=== PATIENT | female | born 1970 | race Caucasian/White ===

== ENCOUNTER 2019-12-04 16:20 | Inpatient (IN) | payer SELFPAY ==
--- NOTE | 2019-12-04 16:28 | XR_ITS ---
WS: [id number] PORTABLE CHEST HISTORY: cough/congestion COMPARISON: None available. Hyperinflated lungs with emphysema. No pleural effusion or pneumothorax. Cardiac size: Mildly enlarged cardiac silhouette. Mediastinum/Aorta: Mild atherosclerosis aorta. No osseous abnormality seen. XR/XR chest 1V portable [id number] IMPRESSION: Chronic emphysema and cardiomegaly. No pneumonia.
--- NOTE | 2019-12-04 16:28 | ECG_ITS ---
Measurements Intervals [place] Rate: 89 P: 19 SD: 143 QRS: 38 QRSD: 99 T: 53 QT: 365 QTc: 446 SINUS RHYTHM LOW QRS VOLTAGE IN PRECORDIAL LEADS [QRS DEFLECTION < 1.0 mV IN CHEST LEADS] No previous ECG available for comparison Electronically Signed On 12-04-2019 19:27:48 CDT by Lashawn Padilla M.D. [id number]
[2019-12-04 16:30] VITALS: BP 145/105; PULSE 87; RESP 17; TEMP 36.9; O2SAT 93; BMI 51.9
[2019-12-04 16:51] VITALS: BP 145/105; PULSE 95; RESP 16; O2SAT 92
[2019-12-04 17:11] LABS: Basophils # 0.1 10^3/uL (0.0-0.1); Basophils % 0.5 %; Eosinophils # 0.4 10^3/uL (0.0-0.8); Eosinophils % 4.4 %; Hematocrit 38.6 % (37.0-47.0); Hemoglobin 11.8 g/dL (11.5-15.3); Mean Corpuscular HGB Conc 30.6 g/dL (30.0-36.0); Mean Corpuscular Hemoglobin 24.8 pg (28.0-34.0); Mean Corpuscular Volume 81.3 fL (81-99); Mean Platelet Volume 10.5 fL (7.4-10.4); Monocytes # 0.6 10^3/uL (0.2-0.9); Monocytes % 5.6 %; Neutrophils # 6.7 10^3/uL (1.8-7.7); Neutrophils % 68.4 %; Nucleated Red Blood Cells % 0 %; Platelet Count 255 10^3/cmm (130-400); Red Blood Count 4.75 10^6/uL (4.1-5.3); Red Cell Distribution Width 13.2 % (12.1-15.1); White Blood Count 9.8 10^3/uL (4.0-10.0)
[2019-12-04 17:29] VITALS: BP 170/128; PULSE 93; RESP 20; O2SAT 92
[2019-12-04 17:39] LABS: D Dimer >= 20.00 ug/mIFEU (0-0.59)
--- NOTE | 2019-12-04 18:10 | ED_ITS ---
HPI - SOB/Dyspnea General: Chief Complaint: Shortness of Breath/Dyspnea Stated Complaint: SOB Time Seen by Provider: 12/04/19 16:35 Source: patient and EMS Mode of arrival: EMS Limitations: no limitations History of Present Illness: HPI Narrative: 49-year-old female patient complains of shortness of breath of 3 days duration. She also had some pain behind her knee and her primary care provider is concerned about a PE so he sent her here for evaluation. She has a history of COPD and asthma. MD elicited complaint: shortness of breath and chest pain Pertinent past history: COPD and asthma Onset (ago): day(s) (3) Timing: constant and progressively worsening Severity: moderate Exacerbating factors: exertion Relieving factors: nothing Known history of: COPD and asthma Associated symptoms: Reports chest pain; Deny abdominal pain, fever(s), nausea, palpitations, polydipsia, polyuria or vomiting Treatment prior to arrival: aspirin and nitroglycerin Review of Systems General: Reports: 10 or more systems reviewed and unremarkable except in HPI and below Const: Denies: fever, chills or body aches Eyes: Denies: change in vision or blurry vision ENMT: Denies: throat pain, enlarged tonsils, painful swallowing, hoarseness, mouth pain or swelling of lips/tongue Card: Reports: chest pain; Denies: palpitations, irregular heart rhythm, edema or swelling of feet/ankles Resp: Denies: shortness of breath, productive cough or non-productive cough GI: Denies: abdominal pain, nausea or vomiting : Denies: flank pain, difficulty urinating, painful urination, urinary frequency, urinary urgency or urinary hesitancy Musc: Denies: neck pain, back pain or extremity swelling Skin/Breast: Denies: rash, itching or redness Neuro: Denies: headache, numbness in extremities or weakness in extremities Endo: Denies: excessive urination, excessive thirst or tired all the time PFSH ED PFSH: Medical History (Updated 12/04/19 @ 20:18 by Jose Reinoso MD, [facility]) Anxiety Asthma COPD (chronic obstructive pulmonary disease) Degenerative joint disease Depression Diabetes DUB (dysfunctional uterine bleeding) Hypertension, benign PTSD (post-traumatic stress disorder) Sleep apnea Type 2 diabetes mellitus Surgical History (Updated 12/04/19 @ 20:05 by Mehul Freeman MD) H/O section H/O foot surgery H/O knee surgery History of appendectomy Social History (Updated 12/04/19 @ 20:05 by Mehul Freeman MD) Smoking and tobacco status: never smoked Alcohol intake: never Substance/Drug Use: never Household members: spouse Housing: House Physical Exam Const: COMMON NORMALS: no apparent distress, average body habitus, oriented x3, no limitations, healthy appearing, alert and well nourished HENMT: COMMON NORMALS: normocephalic, head/scalp atraumatic and moist oral mucous membranes HEAD & SCALP: normocephalic and atraumatic Eye: COMMON NORMALS: PERRL, EOMs intact bilaterally, conjunctivae normal and no scleral icterus CONJUNCTIVA: Yes conjunctivae normal PUPIL: Yes PERRL Neck/C-Spine: COMMON NORMALS: full ROM, supple, no meningeal signs, no JVD and no carotid bruits Chest: COMMONS NORMALS: inspection of chest normal and palpation of chest normal Resp: COMMON NORMALS: normal respiratory effort, no retractions, no use of accessory muscles, clear to auscultation bilaterally and percussion normal AUSCULTATION: clear to auscultation bilaterally PERCUSSION: percussion normal Cardio: COMMON NORMALS: no JVD, regular rate, regular rhythm, S1 normal heart sound, S2 normal heart sound, no gallops, no clicks, no murmurs, no rub and peripheral pulses 2+ throughout RATE: regular rate RHYTHM: regular rhythm HEART SOUNDS: S1 normal and S2 normal PERIPHERAL PULSES: pulses 2+ throughout GI: COMMON NORMALS: normal to inspection, nondistended, normoactive bowel sounds, soft to palpation, non-tender, no hepatosplenomegaly, no masses and no bruits PALPATION: Yes soft and Yes no hepatosplenomegaly : COMMON NORMALS: Yes no CVA tenderness BLADDER/KIDNEY EXAM: Yes no CVA tenderness Back/Pelvis: COMMON NORMALS: no CVA tenderness Extremity: COMMON NORMALS: normal to inspection, full ROM, normal capillary refill, no calf tenderness and no pedal edema Neuro: COMMON NORMALS: oriented x3 SENSORIUM/ORIENTATION: Yes alert MENINGEAL SIGNS: Yes no meningeal signs Skin: COMMON NORMALS: no rashes or lesions noted, no wounds, skin turgor normal, no jaundice, no petechiae and no mottling GENERAL SKIN EXAM: no rashes or lesions noted and turgor normal Course Consultations: Consultation #1: Dr. Freeman, hospitalist. He kindly accepted the patient to his service. Time: 19:30 Vital Signs: Vital signs: Vital Signs Temperature 98.5 F 12/04/19 16:30 Pulse Rate 93 12/04/19 17:29 Respiratory Rate 20 H 12/04/19 17:29 Blood Pressure 170/128 12/04/19 17:29 Pulse Oximetry 92 12/04/19 17:29 MDM - SOB/Dyspnea MDM Narrative: Medical decision making narrative: 49-year-old female patient who presents to the emergency department with shortness of breath. Evaluation in the emergency department yielded massive bilateral pulmonary embolism. She is giving a therapeutic dose of enoxaparin in the emergency department and is admitted for further evaluation and management. Lab Data: Labs: Lab Results 12/04/19 12/04/19 12/04/19 Range/Units 15:41 15:41 15:41 WBC 9.8 (4.0-10.0) 10^3/ uL RBC 4.75 (4.1-5.3) 10^6/u L Hgb 11.8 (11.5-15.3) g/dL Hct 38.6 (37.0-47.0) % MCV 81.3 (81-99) fL MCH 24.8 L (28.0-34.0) pg MCHC 30.6 (30.0-36.0) g/dL RDW 13.2 (12.1-15.1) % Plt Count 255 (130-400) 10^3/c mm MPV 10.5 H (7.4-10.4) fL Neut % (Auto) 68.4 % Lymph % (Auto) 20.0 % [place] % (Auto) 5.6 % Eos % (Auto) 4.4 % Baso % (Auto) 0.5 % Neut # (Auto) 6.7 (1.8-7.7) 10^3/u L Lymph # (Auto) 2.0 (0.8-4.8) 10^3/u L [place] # (Auto) 0.6 (0.2-0.9) 10^3/u L Eos # (Auto) 0.4 (0.0-0.8) 10^3/u L Baso # (Auto) 0.1 (0.0-0.1) 10^3/u L Nucleated RBC % (a uto) 0 % Nucleated RBCs # 0.0 /100WBC D-Dimer >= 20.00 H (0-0.59) ug/mIFE U Sodium 136 (136-145) mmol/L Potassium 4.1 (3.5-5.1) mmol/L Chloride 96 L (98-107) mmol/L Carbon Dioxide 27 (22-29) mmol/L Anion Gap 17.1 (5-19) BUN 11 (6-20) mg/dL Creatinine 0.7 (0.5-0.9) mg/dL GFR Calculation 88.9 L (90-130) mL/min Glucose 277 H (65-115) mg/dL Calculated Osmolal ity 288 (285-295) mOsm/k g Calcium 9.4 (8.5-10.5) mg/dL Total Bilirubin 0.4 (0.15-1.2) mg/dL AST 12 (0-32) U/L ALT 11 (0-33) U/L Alkaline Phosphata se 94 (35-105) IU/L Troponin T 120 Min [place] (0-10) ng/mL Total Protein 7.5 (6.6-8.7) g/dL Albumin 3.8 (3.5-5.2) g/dL Globulin 3.7 (1.3-4.6) g/dL 12/04/19 Range/Units 17:55 WBC (4.0-10.0) 10^3/ uL RBC (4.1-5.3) 10^6/u L Hgb (11.5-15.3) g/dL Hct (37.0-47.0) % MCV (81-99) fL MCH (28.0-34.0) pg MCHC (30.0-36.0) g/dL RDW (12.1-15.1) % Plt Count (130-400) 10^3/c mm MPV (7.4-10.4) fL Neut % (Auto) % Lymph % (Auto) % [place] % (Auto) % Eos % (Auto) % Baso % (Auto) % Neut # (Auto) (1.8-7.7) 10^3/u L Lymph # (Auto) (0.8-4.8) 10^3/u L [place] # (Auto) (0.2-0.9) 10^3/u L Eos # (Auto) (0.0-0.8) 10^3/u L Baso # (Auto) (0.0-0.1) 10^3/u L Nucleated RBC % (a uto) % Nucleated RBCs # /100WBC D-Dimer (0-0.59) ug/mIFE U Sodium (136-145) mmol/L Potassium (3.5-5.1) mmol/L Chloride (98-107) mmol/L Carbon Dioxide (22-29) mmol/L Anion Gap (5-19) BUN (6-20) mg/dL Creatinine (0.5-0.9) mg/dL GFR Calculation (90-130) mL/min Glucose (65-115) mg/dL Calculated Osmolal ity (285-295) mOsm/k g Calcium (8.5-10.5) mg/dL Total Bilirubin (0.15-1.2) mg/dL AST (0-32) U/L ALT (0-33) U/L Alkaline Phosphata se (35-105) IU/L Troponin T 120 Min [place] 18.26 H (0-10) ng/mL Total Protein (6.6-8.7) g/dL Albumin (3.5-5.2) g/dL Globulin (1.3-4.6) g/dL Imaging Data^: CTA Chest: Radiologist's impression: [address] [address] [address] Scan Report Signed with Addenda Patient: Ivon Machado #: [id number] : 1970Acct#:[id number] Age/Sex: 49 / FADM Date: 12/04/19 Loc: ERRoom/Bed: Attending Dr: Ordering Provider/Ordering MD: Jose Reinoso MD, [facility] Date of Service: 12/04/19 Procedure(s): CT angio chest PE protcl [id number] Accession Number(s): [id number] Report Number: [id number]/CT angio chest PE protcl [id number] Addendum: THIS REPORT CONTAINS FINDINGS THAT MAY BE CRITICAL TO PATIENT CARE. The findings were verbally communicated via telephone conference with JOSE REINOSO at 7:23 PM CDT on 12/04/2019. The findings were acknowledged and understood. Radiation Dose CTDIVOL = (mGy): DLP = 951.76 (mGy-cm) Addendum Dictated By: Zaire Hines Addendum Signed By: Polina Hinesigned Date/Time:12/04/191924 Addendum Cosigned By: PROCEDURE INFORMATION: Exam: CT Angiography Chest With Contrast Exam date and time: 12/04/2019 6:27 PM Age: 49 years old Clinical indication: Shortness of breath; Chest pain; Additional info: High pretest probability TECHNIQUE: Imaging protocol: Computed tomographic angiography of the chest with intravenous contrast. 3D rendering: MIP and/or 3D reconstructed images were created by the technologist. Radiation optimization: All CT scans at this facility use at least one of these dose optimization techniques: automated exposure control; mA and/or kV adjustment per patient size (includes targeted exams where dose is matched to clinical indication); or iterative reconstruction. Contrast material: OMNI 350; Contrast volume: 86 ml; Contrast route: IV; COMPARISON: CR XR chest 1V portable [id number] 12/04/2019 4:35 PM RADIATION DOSE METRICS: Total DLP: 951.76 mGy-cm FINDINGS: Pulmonary arteries: There are bilateral filling defects throughout the pulmonary artery branches in all segments of the lungs consistent with pulmonary emboli. This includes large emboli in the main right and left pulmonary artery segments. Aorta: The aorta is normal without evidence of aneurysm or dissection. Lungs: Lungs are clear. Pleural space: Unremarkable. No pneumothorax. No pleural effusion. Heart: Unremarkable. No cardiomegaly. No pericardial effusion. Lymph nodes: Unremarkable. No enlarged lymph nodes. Bones/joints: Unremarkable. No acute fracture. Soft tissues: Unremarkable. CT/CT angio chest PE protcl [id number] IMPRESSION: Extensive bilateral pulmonary embolism. Radiation Dose CTDIVOL = (mGy): DLP = 951.76 (mGy-cm) Dictated By:Zaire Hines Signed By:Polina Hinesigned Date/Time:12/04/191920 EKG Data^: EKG 1: Attestation: I personally reviewed and interpreted this EKG as follows: EKG Interpretation Date: 12/04/19 EKG interpretation time: 16:56 Prior EKG tracings: not available for review Interpretation: Normal sinus rhythm. Heart rate 89 beats per minutes. No ST changes. Normal axis. EKG 2: Attestation: I personally reviewed and interpreted this EKG as follows: EKG Interpretation Date: 12/04/19 EKG interpretation time: 18:33 Prior EKG tracings: not available for review Interpretation: Unchanged from earlier today Discharge Plan Discharge Patient Disposition: Admitted As Inpatient Admit Provider: Mehul Freeman Clinical Impression: Bilateral pulmonary embolism Condition: Stable Coding Level of Care Code ED Preschool Teacher Aide for Chg Fwd Exam Comprehensive
--- NOTE | 2019-12-04 18:19 | CTR_ITS ---
PROCEDURE INFORMATION: Exam: CT Angiography Chest With Contrast Exam date and time: 12/04/2019 6:27 PM Age: 49 years old Clinical indication: Shortness of breath; Chest pain; Additional info: High pretest probability TECHNIQUE: Imaging protocol: Computed tomographic angiography of the chest with intravenous contrast. 3D rendering: MIP and/or 3D reconstructed images were created by the technologist. Radiation optimization: All CT scans at this facility use at least one of these dose optimization techniques: automated exposure control; mA and/or kV adjustment per patient size (includes targeted exams where dose is matched to clinical indication); or iterative reconstruction. Contrast material: OMNI 350; Contrast volume: 86 ml; Contrast route: IV; COMPARISON: CR XR chest 1V portable [id number] 12/04/2019 4:35 PM RADIATION DOSE METRICS: Total DLP: 951.76 mGy-cm FINDINGS: Pulmonary arteries: There are bilateral filling defects throughout the pulmonary artery branches in all segments of the lungs consistent with pulmonary emboli. This includes large emboli in the main right and left pulmonary artery segments. Aorta: The aorta is normal without evidence of aneurysm or dissection. Lungs: Lungs are clear. Pleural space: Unremarkable. No pneumothorax. No pleural effusion. Heart: Unremarkable. No cardiomegaly. No pericardial effusion. Lymph nodes: Unremarkable. No enlarged lymph nodes. Bones/joints: Unremarkable. No acute fracture. Soft tissues: Unremarkable. CT/CT angio chest PE protcl [id number] IMPRESSION: Extensive bilateral pulmonary embolism. Radiation Dose CTDIVOL = (mGy): DLP = 951.76 (mGy-cm)
[2019-12-04 18:21] LABS: Troponin 5 2HR 18.26 ng/mL (0-10)
--- NOTE | 2019-12-04 18:28 | ECG_ITS ---
Measurements Intervals [place] Rate: 85 P: -3 CO: 155 QRS: 51 QRSD: 101 T: 64 QT: 386 QTc: 459 SINUS RHYTHM Compared to ECG 12/04/2019 18:33:46 No significant changes Electronically Signed On 12-06-2019 16:13:22 CDT by Lashawn Padilla M.D. [id number]
[2019-12-04 18:31] LABS: Alanine Aminotransferase 11 U/L (0-33); Albumin Level 3.8 g/dL (3.5-5.2); Alkaline Phosphatase 94 IU/L (35-105); Anion Gap 17.1 (5-19); Aspartate Amino Transferase 12 U/L (0-32); Blood Urea Nitrogen 11 mg/dL (6-20); Calcium 9.4 mg/dL (8.5-10.5); Carbon Dioxide 27 mmol/L (22-29); Chloride 96 mmol/L (98-107); Globulin 3.7 g/dL (1.3-4.6); Glomerular Filtration Rate 88.9 mL/min (90-130); Glucose 277 mg/dL (65-115); Osmolality Calculated 288 mOsm/kg (285-295); Potassium 4.1 mmol/L (3.5-5.1); Sodium 136 mmol/L (136-145); Total Bilirubin 0.4 mg/dL (0.15-1.2); Total Protein 7.5 g/dL (6.6-8.7)
[2019-12-04] MEDS: iohexol 350 mg/mL 100 mL Btl IV (19:03)
--- NOTE | 2019-12-04 19:42 | PM.HP ---
Providers/Chief Complaint Primary Care Provider: Sangeeta Camacho MD Chief Complaint: SOB History of Present Illness Ivon Machado is a 49 year old female who carries diagnosis of obstructive sleep apnea, COPD, uses BiPAP at night came in with chief complaint of shortness of breath and chest pain. Patient is stating that she has been leading a sedentary lifestyle, she started experiencing knee pain 2 to 3 weeks ago, up until 3 days ago she started experiencing shortness of breath at rest and on exertion, her shortness of breath was not improving with her rescue inhalers or use of BiPAP at night, she was also experiencing intermittent chest pain which she is describing as chest discomfort which resolves on its own. She is endorsing nausea but is denying fever, vomiting, dysuria, change in bowel habits, previous history of cancer, hematological diseases, family history of clotting disorder. She experienced one , she has 2 children. Diagnostics in ER revealed hypertension, she was saturating well on room air, high d-dimer, CTA positive for bilateral PEs, first troponin mildly high, I have ordered BNP, echo and lower extremity Doppler Currently she is hemodynamically stable Review of Systems Const: Reports: body aches and fatigue; Denies: fever or chills Eyes: Denies: change in vision ENMT: Denies: throat pain or uvular edema Card: Reports: chest pain, swelling of feet/ankles and shortness of breath on exertion; Denies: palpitations, irregular heart rhythm or shortness of breath when lying down Resp: Reports: shortness of breath GI: Denies: abdominal pain or nausea : Denies: flank pain Musc: Denies: neck pain Skin/Breast: Denies: rash Neuro: Denies: headache Psych: Denies: anxiety Endo: Denies: excessive urination Reggie/Lymph: Denies: easy bruising All/Imm: Denies: hives Medications/Allergies Home Medications Medication Instructions Recorded Confirmed Last Taken Type hydrochlorothiazide 25 mg tablet 25 mg PO QAM 08/26/19 12/04/19 Unknown History glipizide 10 mg PO DAILY 12/04/19 12/04/19 12/03/19 History Allergies Allergy/AdvReac Type Severity Reaction Status Date / Time No Known Allergies Allergy Verified 12/04/19 15:02 PFSH Acute PFSH: Medical History (Updated 12/04/19 @ 20:05 by Mehul Freeman MD) Anxiety Asthma COPD (chronic obstructive pulmonary disease) Degenerative joint disease Depression Diabetes DUB (dysfunctional uterine bleeding) Hypertension, benign PTSD (post-traumatic stress disorder) Sleep apnea Type 2 diabetes mellitus Surgical History (Updated 12/04/19 @ 20:05 by Mehul Freeman MD) H/O section H/O foot surgery H/O knee surgery History of appendectomy Social History (Updated 12/04/19 @ 20:05 by Mehul Freeman MD) Smoking and tobacco status: never smoked Alcohol intake: never Substance/Drug Use: never Household members: spouse Housing: House Vitals/I&O/Wt Last Vital Signs Temp 98.5 F 12/04/19 16:30 Pulse 93 12/04/19 17:29 Resp 20 H 12/04/19 17:29 BP 170/128 12/04/19 17:29 Pulse Ox 92 12/04/19 17:29 Weight last 48 hrs Weight 132.903 kg Physical Exam Narrative: EXAM NARRATIVE: This is a morbidly obese female He was sitting comfortably in her bed without any active respiratory distress, saturating well on room air, she is hypertensive at this point 170/120 S1, S2 no signs of heart failure Hard to assess her JVD Clinically no signs of heart failure Adventitious sounds not appreciated, lungs are clear to auscultation Abdomen soft, distended, visceral obesity, bowel sound present Neurologically nonfocal exam EOMI, PERRLA Lower extremity no signs of ischemia gangrene or ulcer, asymmetrical calf muscles Appropriate mood and affect Data : 12/04/19 15:41 12/04/19 15:41 A&P Assessment and plan (1) Bilateral pulmonary embolism: Status: Acute (2) Knee pain: Status: Acute (3) Morbid obesity: Status: Acute (4) Diabetes: Status: Acute Qualifiers: Diabetes mellitus type: type 2 Diabetes mellitus skilled nursing insulin use: without skilled nursing use Diabetes mellitus complication status: without complication Qualified Code(s): E11.9 - Type 2 diabetes mellitus without complications Additional A&P Information Acute bilateral symptomatic PE (provoked) Hemodynamically she is stable No evidence of right heart strain from EKG however there is mild increase in troponin, will get BNP now and echo in the morning Patient is denying any history of cancer, most likely this is a provoked event due to sedentary lifestyle, she experienced knee pain, calf muscles are asymmetrical, will get venous Dopplers bilateral, Considering her BMI I would use Lovenox for now Hypertension: I would use low-dose lisinopril at this point considering bilateral PEs I would be reluctant to reduce her perfusion pressure to avoid hemodynamic instability Obstructive sleep apnea Patient is stating that she is using BiPAP at night She is a non-smoker she carries diagnosis of asthma and COPD however not sure if she had pulmonary function test done in the past Type 2 diabetes: Moderate sliding scale, consistent carbohydrate diet DVT prophylaxis: Start Lovenox full dose Full code Attestations Medical Necessity Statement*: Anticipating her stay to be less than 48 hours, currently needs treatment for bilateral PEs, no hemodynamic instability Time Spent in Patient Care: 40 Coding Level of Care Code Acute Biological Chemist for Ej Raygoza Diagnoses Bilateral pulmonary embolism I26.99 Knee pain M25.569 Morbid obesity E66.01 Diabetes E11.9 Diabetes mellitus type: type 2 Diabetes mellitus supervising law enforcement analyst insulin use: without supervising law enforcement analyst use Diabetes mellitus complication status: without complication
[2019-12-04] MEDS: enoxaparin 100 mg/mL Syringe SUBCUT (20:06)
[2019-12-04] MEDS: enoxaparin 30 mg/0.3 mL Syringe SUBCUT (20:06)
[2019-12-04 20:19] VITALS: BP 122/81; PULSE 87; RESP 18; TEMP 37; O2SAT 96
[2019-12-04 20:30] LABS: Troponin(5th) Baseline 21 ng/mL (0-10)
[2019-12-04 21:00] VITALS: BP 157/85; PULSE 92; RESP 18; TEMP 36.8; O2SAT 90
[2019-12-04 21:15] LABS: NT Pro B Type Natriuretic Pept 31 pg/mL (0-125)
[2019-12-04] MEDS: hyDRALAzine 20 mg/mL INJ 1 mL 5 MG IVP (21:23)
[2019-12-04 21:41] LABS: Glucose Point of Care 197 mg/dL (70-110)
[2019-12-04 22:11] VITALS: PULSE 86; RESP 20; O2SAT 95
--- NOTE | 2019-12-04 22:28 | ECG_ITS ---
Measurements Intervals [place] Rate: 87 P: 73 [place]: 156 QRS: 36 QRSD: 100 T: 54 QT: 368 QTc: 443 SINUS RHYTHM No previous ECG available for comparison Electronically Signed On 12-04-2019 19:42:44 CDT by Lashawn Padilla M.D. [id number]
[2019-12-04 22:54] LABS: Troponin 5 6HR 18.24 ng/mL (0-10)
[2019-12-04 22:57] LABS: Troponin 5 6HR Delta -2.76 ng/L (0-12)
[2019-12-04 23:22] LABS: Troponin 5 2HR Delta -2.74 ABS# (0-10)
[2019-12-04] MEDS: TRAMadol 50 mg Tablet PO (23:48)
[2019-12-05] VITALS (12 sets, daily range): BP systolic 108–131; BP diastolic 66–84; PULSE 77–86; RESP 18–23; TEMP 36.4–36.9; O2SAT 91–98
[2019-12-05 05:19] LABS: Basophils # 0.1 10^3/uL (0.0-0.1); Basophils % 0.5 %; Eosinophils # 0.6 10^3/uL (0.0-0.8); Eosinophils % 5.5 %; Hematocrit 35.9 % (37.0-47.0); Hemoglobin 10.8 g/dL (11.5-15.3); Lymphocytes # 2.8 10^3/uL (0.8-4.8); Lymphocytes % 27.7 %; Mean Corpuscular HGB Conc 30.1 g/dL (30.0-36.0); Mean Corpuscular Hemoglobin 24.5 pg (28.0-34.0); Mean Corpuscular Volume 81.4 fL (81-99); Mean Platelet Volume 10.1 fL (7.4-10.4); Monocytes # 0.6 10^3/uL (0.2-0.9); Neutrophils % 59.1 %; Nucleated Red Blood Cells % 0 %; Platelet Count 230 10^3/cmm (130-400); Red Blood Count 4.41 10^6/uL (4.1-5.3); Red Cell Distribution Width 13.3 % (12.1-15.1); White Blood Count 10.1 10^3/uL (4.0-10.0)
[2019-12-05 05:37] LABS: Anion Gap 15.2 (5-19); Blood Urea Nitrogen 10 mg/dL (6-20); Calcium 8.9 mg/dL (8.5-10.5); Carbon Dioxide 26 mmol/L (22-29); Chloride 99 mmol/L (98-107); Glomerular Filtration Rate 88.9 mL/min (90-130); Glucose 171 mg/dL (65-115); Osmolality Calculated 282 mOsm/kg (285-295); Potassium 4.2 mmol/L (3.5-5.1); Sodium 136 mmol/L (136-145)
[2019-12-05 06:28] LABS: Glucose Point of Care 169 mg/dL (70-110)
[2019-12-05] MEDS: lisinopril 10 mg Tablet PO (08:01)
[2019-12-05] MEDS: enoxaparin 100 mg/mL Syringe SUBCUT ×2 (08:02→19:39)
[2019-12-05] MEDS: enoxaparin 30 mg/0.3 mL Syringe SUBCUT ×2 (08:03→19:40)
[2019-12-05 11:15] LABS: Glucose Point of Care 262 mg/dL (70-110)
--- NOTE | 2019-12-05 12:35 | P.PN_ITS ---
Subjective Subjective: Interval history: Ivon reports she still a little short of breath. She is not having chest pain. Overall feels better. History and physical was reviewed. Medications: Reviewed: Yes Vitals/I&O/Wt Last Vital Signs Temp 97.6 F 12/05/19 10:50 Pulse 79 12/05/19 10:50 Resp 20 H 12/05/19 10:50 BP 125/78 12/05/19 10:50 Pulse Ox 97 12/05/19 10:50 12/04/19 12/05/19 12/05/19 22:59 06:59 14:59 Intake Total 480 / 480 120 / 600 600 / 600 Output Total 200 / 200 300 / 300 Balance 480 / 480 -80 / 400 300 / 300 Weight last 48 hrs Weight 132.903 kg Physical Exam Narrative: EXAM NARRATIVE: General exam no apparent distress Cardiovascular regular rate and rhythm, heart sounds distant Lungs clear but with diminished breath sounds bilaterally Abdomen is soft with positive bowel sounds, obese Extremities with 1+ edema right greater than left Data : 12/05/19 05:06 12/05/19 05:06 A&P Assessment and plan (1) Bilateral pulmonary embolism: Initiated on full dose Lovenox Significantly sedentary prior to admission. No family history of DVT. No history of malignancy. May need further work-up as outpatient. Secondary to extensive burden will continue Lovenox for now and transition to [facility] likely Monday with discharge if no events Await echocardiogram to check for right heart strain. No evidence of this on EKG. Status: Acute (2) DVT, bilateral lower limbs: Continue full dose Lovenox Status: Acute (3) Knee pain: Status: Acute (4) Morbid obesity: Status: Acute (5) Diabetes: Sliding scale insulin Status: Acute Qualifiers: Diabetes mellitus type: type 2 Diabetes mellitus terminal system operator insulin use: without snf use Diabetes mellitus complication status: without complication Qualified Code(s): E11.9 - Type 2 diabetes mellitus without complications Additional A&P Information Hypertension. Continue lisinopril currently. Monitor closely for any hypotension secondary to bilateral PE Obstructive sleep apnea, continue BiPAP History of asthma, add albuterol as needed Full code DVT prophylaxis with Lovenox Changed to regular admission secondary to large burden DVT, pulmonary embolism, requiring further close monitoring Attestations Medical Necessity Statement*: Needs continued hospitalization for close monitoring secondary to large burden pulmonary embolism left and right main pulmonary arteries Coding Level of Care Code Acute Furnace Mechanic for Chg Fwd Diagnoses Bilateral pulmonary embolism I26.99 DVT, bilateral lower limbs I82.403 Knee pain M25.569 Morbid obesity E66.01 Diabetes E11.9 Diabetes mellitus type: type 2 Diabetes mellitus terminal system operator insulin use: without terminal system operator use Diabetes mellitus complication status: without complication
[2019-12-05 16:15] LABS: Glucose Point of Care 240 mg/dL (70-110)
--- NOTE | 2019-12-05 19:23 | USCV_ITS ---
Ivon Machado Age: 49 Gender: F : 1970 Exam Date: 12/05/2019 07:09 Ordering Phys: Jose Mares MD [facility] [place]ologist: Roxanna Pittman [place] [facility] [place]: Massive PE BP: / HR: 80 Rhythm: Sinus Technical Quality: TDS MEASUREMENTS (Male / Female) Normal Values 2D ECHO LV Chamber Size 3.1 cm RV Chamber Size 2.5 cm LVOT Diameter 2.1 cm LA Diameter 3.2 cm LA Width 2.1 cm LA Height 5.1 cm RA Width 3.8 cm RA Height 4.2 cm Aorta at Sinotubular Diameter 2.8 cm M-MODE RV Diastolic Diameter MM 1.4 cm Aortic Annulus Diameter 3.1 cm LA Ao Ratio MM 1.0 MV E Point Septal Separation 0.6 cm DOPPLER AV Peak Velocity 134.0 cm/s LVOT Peak Velocity 111.0 cm/s AV Area Cont Eq vti 2.9 cm squared AV Area Cont Eq pk 2.8 cm squared MV Area PHT 5.5 cm squared Mitral E to A Ratio 2.1 MV E' Velocity 14.0 cm/s Mitral E to MV E' Ratio 6.3 Mitral E to LV E' Lateral Ratio 6.3 Mitral E to LV E' Septal Ratio 6.3 TR Peak Velocity 4.0 cm/s TR Peak Gradient 0.0 mmHg TR Mean Velocity 108.7 cm/s TR Mean Gradient 6.2 mmHg TR Velocity Time Integral 42.6 cm TV Peak E Velocity 35.0 cm/s Right Atrial Pressure 15.0 mmHg Pulmonary Artery Systolic Pressu 15.0 mmHg PV Peak Velocity 49.0 cm/s RV Acceleration Time 0.2 s RV Ejection Time 0.6 s RV AcT/ET 0.4 FINDINGS Left Ventricle Normal left ventricular systolic function. Left ventricular ejection fraction is estimated at 60 %. Although no diagnostic regional wall motion abnormality could be identified, this possibility cannot be completely excluded based on the study. Flattened septum in systole consistent with right ventricle pressure overload. Right Ventricle Right ventricle not well visualized. Probably upper normal right ventricle size and normal systolic function. Right ventricular systolic pressure 35 mmHg. Right Atrium Normal right atrial size. Right atrial pressure estimated at 15 mmHg. Left Atrium Normal left atrial size. Mitral Valve Structurally normal mitral valve. No significant mitral valve regurgitation. Aortic Valve Aortic valve not well visualized. No aortic valve stenosis. No aortic valve regurgitation. Tricuspid Valve Tricuspid valve not well visualized. Trace tricuspid valve regurgitation. Pulmonic Valve Pulmonic valve not well visualized. Pericardium No pericardial effusion. Aorta Aorta not well visualized. CONCLUSIONS 1. This is a technically very difficult study. 2. Normal left ventricular systolic function. Left ventricular ejection fraction is estimated at 60 %. Although no diagnostic regional wall motion abnormality could be identified, this possibility cannot be completely excluded based on the study. Flattened septum in systole consistent with right ventricle pressure overload. 3. Probably upper normal right ventricle size and normal systolic function. 4. Right atrial pressure estimated at 15 mmHg. 5. No significant valvular abnormality. 6. No prior similar studies to compare. Lashawn Padilla MD (Electronically Signed) Final Date: 05 December 2019 13:36 S
[2019-12-05] MEDS: tizanidine 4 mg Tablet 2 MG PO (19:39)
--- NOTE | 2019-12-05 20:42 | USCV_ITS ---
Ivon Machado Age: 49 Gender: F : 1970 Exam Date: 12/05/2019 06:45 Ordering Phys: Mehul Freeman MD Technologist: Roxanna Pittman [place]am Location: [facility] [place]: PE HISTORY: Pt admitted with PE PROCEDURES: The venous duplex Doppler examination of both lower extremities was performed in the standard fashion. The following venous structures were evaluated: common femoral vein, profunda vein, proximal portion of the greater saphenous vein, superficial femoral vein, and the popliteal vein. In addition, the posterior tibial and peroneal trunk were evaluated. Serial compression, augmentation maneuvers, and spectral Doppler flow evaluation were performed. FINDINGS: RT leg DVT from Rt CFV through the peroneal trunk. Occlusive acute DVT. Lt Leg DVT from Lt FV through the peroneal trunk. Occlusive acute DVT. CONCLUSIONS Extensive bilateral DVT. Dr. Arline Alexandra DO (Electronically Signed) Final Date: 05 December 2019 10:02 S
[2019-12-06] VITALS (12 sets, daily range): BP systolic 102–139; BP diastolic 59–73; PULSE 69–82; RESP 17–24; TEMP 36.6–38.2; O2SAT 90–96
[2019-12-06] MEDS: TRAMadol 50 mg Tablet PO (03:12)
[2019-12-06 05:17] LABS: Basophils # 0.1 10^3/uL (0.0-0.1); Basophils % 0.6 %; Eosinophils # 0.6 10^3/uL (0.0-0.8); Eosinophils % 5.6 %; Hematocrit 34.6 % (37.0-47.0); Hemoglobin 10.4 g/dL (11.5-15.3); Lymphocytes # 2.8 10^3/uL (0.8-4.8); Lymphocytes % 28.8 %; Mean Corpuscular HGB Conc 30.1 g/dL (30.0-36.0); Mean Corpuscular Hemoglobin 24.9 pg (28.0-34.0); Mean Platelet Volume 10.7 fL (7.4-10.4); Monocytes # 0.7 10^3/uL (0.2-0.9); Neutrophils # 5.5 10^3/uL (1.8-7.7); Neutrophils % 56.3 %; Nucleated Red Blood Cells % 0 %; Platelet Count 247 10^3/cmm (130-400); Red Blood Count 4.17 10^6/uL (4.1-5.3); Red Cell Distribution Width 13.2 % (12.1-15.1); White Blood Count 9.8 10^3/uL (4.0-10.0)
[2019-12-06 05:27] LABS: Alanine Aminotransferase 10 U/L (0-33); Albumin Level 3.3 g/dL (3.5-5.2); Alkaline Phosphatase 78 IU/L (35-105); Anion Gap 15.1 (5-19); Aspartate Amino Transferase 12 U/L (0-32); Blood Urea Nitrogen 12 mg/dL (6-20); Calcium 8.7 mg/dL (8.5-10.5); Carbon Dioxide 26 mmol/L (22-29); Chloride 99 mmol/L (98-107); Globulin 3.3 g/dL (1.3-4.6); Glomerular Filtration Rate 88.9 mL/min (90-130); Glucose 192 mg/dL (65-115); Osmolality Calculated 283 mOsm/kg (285-295); Potassium 4.1 mmol/L (3.5-5.1); Sodium 136 mmol/L (136-145); Total Bilirubin 0.3 mg/dL (0.15-1.2); Total Protein 6.6 g/dL (6.6-8.7)
[2019-12-06 07:42] LABS: Glucose Point of Care 150 mg/dL (70-110)
[2019-12-06] MEDS: enoxaparin 30 mg/0.3 mL Syringe SUBCUT ×2 (09:15→21:17)
[2019-12-06] MEDS: enoxaparin 100 mg/mL Syringe SUBCUT ×2 (09:15→21:16)
[2019-12-06] MEDS: lisinopril 10 mg Tablet PO (09:33)
--- NOTE | 2019-12-06 09:47 | PC.CHAP ---
Pastoral Care Encounter/Spiritual Assessment Type of Contact [] Declined acquisitions logistics analyst visit [] Patient/Family/Request visit [] Outpatient visit [] Follow-up visit [] Physician referral [] Code/Alert [x] Routine visit [] Staff referral [] Actively dying [x] Patient sleeping [] Family support [] [] Out of room [] Palliative care [] [] Receiving care in room [] Pre-surgical visit [] Trauma [] Long length of stay [] ICU visit [] Other: Relational/Emotional Strength [] Patient feels connected with others/family/visitors/staff [] Distress [] Loneliness/isolation [] Abandonment Spirituality of Patient [] Person of Natalya [] Attends Taoism of their Natalya [] Believes in Prayer [] Reads Bible or Uatsdin materials [] There are Spiritual issues to be addressed Show Host/Hostess Interventions [x] Prayer [] Active listening [] Non-anxious presence [] Spiritual/emotional support [] Crisis/trauma care [] Spiritual counseling [] Bereavement support [] Provided bereavement packet [] Provided Bible/devotional materials [] Provided toy/stuffed animal, coloring book to patient or family member [] Provided Communion [] Anointing/[place] [] Salvation [x] Completed spiritual assessment [] Other: Impact on Illness or Injury [] Angry [] Fearful [] Anxious [] Often cries [] Exhaustion [] Unable to work [] Unable to attend mandaeism [] Unable to walk/stand [] Unable to read [] Unable to drive [] Unable to eat/drink [] Unable to sleep [] Unable to be with family [] Patient intubated [] Other: Summary Patient on respirator Time spent with patient 5 min
[2019-12-06 11:48] LABS: Glucose Point of Care 233 mg/dL (70-110)
[2019-12-06] MEDS: tizanidine 4 mg Tablet 2 MG PO (17:21)
--- NOTE | 2019-12-06 17:23 | P.PN_ITS ---
Subjective Subjective: Interval history: Ivon reports she is doing okay. No shortness of breath. No chest pain. Medications: Reviewed: Yes Vitals/I&O/Wt Last Vital Signs Temp 100.7 F H 12/06/19 15:58 Pulse 69 12/06/19 15:58 Resp 20 H 12/06/19 15:58 BP 112/73 12/06/19 15:58 Pulse Ox 96 12/06/19 15:58 12/06/19 12/06/19 12/06/19 06:59 14:59 22:59 Intake Total 200 / 200 222 / 422 Output Total 600 / 600 Balance 200 / 200 -378 / -178 Physical Exam Narrative: EXAM NARRATIVE: General exam no apparent distress Cardiovascular regular rate and rhythm Lungs clear Abdomen is soft with positive bowel sounds, obese Extremities with 1+ edema right greater than left Data : 12/06/19 03:30 12/06/19 03:30 A&P Assessment and plan (1) Bilateral pulmonary embolism: Continue full dose Lovenox If remains stable through tomorrow changed to Eliquis and potential discharge Echocardiogram did demonstrate some evidence of right ventricle pressure overload, but study was difficult. Status: Acute (2) DVT, bilateral lower limbs: Continue full dose Lovenox Status: Acute (3) Knee pain: Status: Acute (4) Morbid obesity: Status: Acute (5) Diabetes: Sliding scale insulin Status: Acute Qualifiers: Diabetes mellitus type: type 2 Diabetes mellitus intermediate manager insulin use: without care home use Diabetes mellitus complication status: without comp lication Qualified Code(s): E11.9 - Type 2 diabetes mellitus without compl ications Additional A&P Information Hypertension. Continue lisinopril Obstructive sleep apnea, continue BiPAP History of asthma, add albuterol as needed Full code DVT prophylaxis with Lovenox Did note elevation of temperature of 100.7. Patient has been without complaints and this may be secondary to atelectasis, versus pulmonary embolism. No evidence of pneumonia on CTA and chest x-ray. No other symptoms to suggest other infection currently. Attestations Medical Necessity Statement*: Needs continued hospitalization for close monitoring secondary to large burden DVT and pulmonary emboli with some evidence of right heart strain on echocardiogram Coding Level of Care Code Acute Cabin Worker for [facility] Fwd Diagnoses Bilateral pulmonary embolism I26.99 DVT, bilateral lower limbs I82.403 Knee pain M25.569 Morbid obesity E66.01 Diabetes E11.9 Diabetes mellitus type: type 2 Diabetes mellitus intermediate manager insulin use: without intermediate manager use Diabetes mellitus complication status: without complication
[2019-12-06 17:34] LABS: Glucose Point of Care 247 mg/dL (70-110)
[2019-12-06 20:16] LABS: Glucose Point of Care 217 mg/dL (70-110)
[2019-12-06 20:33] LABS: Glucose Point of Care 271 mg/dL (70-110)
[2019-12-06 23:49] LABS: Bacteria Urine TRACE; Bilirubin Urine 1+ (NEGATIVE); Blood Urine Neg (Negative); Glucose Urine UA 2+ (Normal); Ketones Urine Negative (Negative); Leukocyte Esterase Urine Negative (Negative); Mucus Urine 1+; Nitrate Urine Negative (Negative); Protein Urine Neg (Negative); RBC Urine 0-4 /hpf (0-2); Squamous Epithelial Cell Urine 0-4 (0-5); Urine Appearance Cloudy (CLEAR); Urine Color Yellow (Yellow); Urobilinogen Urine Norm (Negative); WBC Urine 0-4 /hpf (0-5); pH Urine 5 (5-7)
[2019-12-07] VITALS (9 sets, daily range): BP systolic 104–122; BP diastolic 64–76; PULSE 80–92; RESP 20–24; TEMP 36.3–37.2; O2SAT 86–97
[2019-12-07 06:43] LABS: Glucose Point of Care 123 mg/dL (70-110)
[2019-12-07] MEDS: lisinopril 10 mg Tablet PO (08:27)
[2019-12-07] MEDS: enoxaparin 100 mg/mL Syringe SUBCUT (08:27)
[2019-12-07] MEDS: enoxaparin 30 mg/0.3 mL Syringe SUBCUT (08:27)
--- NOTE | 2019-12-07 10:15 | P.DS_ITS ---
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 This is been going on for several days and she had had knee pain 2 to 3 weeks prior. Laboratory demonstrated a slight elevation in troponin with no significant delta. Venous duplex of her lower extremities which were slightly swollen demonstrated bilateral DVTs. CTA demonstrated bilateral pulmonary emboli, main pulmonary arteries. She was placed on Lovenox, full dose anticoagulation and monitored closely from admission, on December 03 through December 05. During that time. She had no decompensation. She continued to use her BiPAP, while sleeping. She required minimal oxygen when off. Chest discomfort went away. Legs felt better. On December 06 she was transitioned to full dose Eliquis. At that time the patient requested to go home, which was reasonable considering her course up to date. Echocardiogram was performed while she was in the hospital demonstrated normal EF, overall poor study, some flattening of the septum during systole that may be considered consistent with right ventricular pressure overload, but over all normal right ventricular systolic size and pressure. Right atrial pressure was 15. She was encouraged to follow-up with her primary care provider in 3 to 5 days, returning immediately for any worsening. Physical Exam Narrative: EXAM NARRATIVE: General exam no apparent distress Cardiovascular regular in rhythm without murmur Lungs clear Abdomen is soft with positive bowel sounds, obese Extremities 1+ edema bilaterally. Discharge Data Data Completed and Pending: Completed Studies During Hospitalization Category Date Time Status CT angio chest PE protcl [id number] Stat Cat Scan 12/04/19 18:19 Completed XR chest 1V mary jo ble [id number] Urgent Exams 12/04/19 16:28 Completed CV echo complete* [id number] Urgent Ultrasound 12/05/19 19:23 [place] [id number] Routin e Ultrasound 12/05/19 20:42 Completed Labs from last 24 hours 12/07/19 12/06/19 12/06/19 06:39 23:00 20:25 POC Glucose 123 271 Urine Color Yellow Urine Appearance Cloudy Urine pH 5 Ur Specific Gravit y 1.020 Urine Protein Neg Urine Glucose (UA) 2+ Urine Ketones Negative Urine Blood Neg Urine Nitrate Negative Urine Bilirubin 1+ H Urine Urobilinogen Norm Ur Leukocyte Nury ase Negative Urine RBC 0-4 H Urine WBC 0-4 H Ur Squamous Epith Cells 0-4 H Urine Bacteria Trace Urine Mucus 1+ 12/06/19 12/06/19 12/05/19 17:16 11:15 20:21 POC Glucose 247 233 217 Urine Color Urine Appearance Urine pH Ur Specific Gravit y Urine Protein Urine Glucose (UA) Urine Ketones Urine Blood Urine Nitrate Urine Bilirubin Urine Urobilinogen Ur Leukocyte Nury ase Urine RBC Urine WBC Ur Squamous Epith Cells Urine Bacteria Urine Mucus Vitals: Last Vital Signs Temp 97.4 F L 12/07/19 07:22 Pulse 80 12/07/19 08:39 Resp 20 H 12/07/19 07:22 BP 122/64 12/07/19 07:22 Pulse Ox 95 12/07/19 08:39 Discharge Plan Discharge Patient Disposition: Home, Self-Care Condition: Stable Prescriptions: New lisinopril 10 mg Tablet 10 mg PO DAILY Qty: 30 RF: 0 Eliquis DVT-PE Treat 30D Start 5 mg (74 tabs) tablets,dose pack See Rx Instructions .ROUTE .COMPLEX Qty: 74 RF: 0 Continued glipizide 10 mg Tablet Extended Release 24hr 10 mg PO DAILY RF: 0 Discontinued hydrochlorothiazide 25 mg tablet 25 mg PO QAM RF: 0 Discharge Orders: Discharge Order (Routine); Ordered 12/07/19 Ordered By: Pete Andres Other Ambulatory Orders: DME: Oxygen (Order) Location: None Selected Ordered By: Pete Andres Referrals: Sangeeta Camacho MD [Primary Care Provider] - 4-7 days Discharge Diet: Cardiac Discharge Activity: Increase activity as tolerated Activity Restrictions/Additional Instructions: Take all medicine as prescribed. Return for any concerns. Keep follow-up with primary care provider. Do not miss any doses of your Eliquis. 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
[2019-12-07 10:55] LABS: Glucose Point of Care 199 mg/dL (70-110)
== END 2019-12-07 15:38 | disposition home or self-care (01) | DRG 176 ==
LOC: ER 16:50 → MEDSURG 20:18
PROVIDERS: Physician Assistant; Admitting Provider Internal Medicine; Emergency Provider Family Medicine; Family Provider Emergency Medicine; PCP Family Medicine; Visit Provider Internal Medicine
DX: I26.99 Other pulmonary embolism without acute cor pulmonale (principal); I82.413 Acute embolism and thrombosis of femoral vein, bilateral; I82.453 Acute embolism and thrombosis of peroneal vein, bilateral; Z68.43 Body mass index [BMI] 50.0-59.9, adult; G47.33 Obstructive sleep apnea (adult) (pediatric); J44.9 Chronic obstructive pulmonary disease, unspecified; I10 Essential (primary) hypertension; F41.9 Anxiety disorder, unspecified; J45.909 Unspecified asthma, uncomplicated; M19.90 Unspecified osteoarthritis, unspecified site; F32.9 Major depressive disorder, single episode, unspecified; E11.9 Type 2 diabetes mellitus without complications; F43.10 Post-traumatic stress disorder, unspecified; E66.01 Morbid (severe) obesity due to excess calories; M25.569 Pain in unspecified knee
CPT/HCPCS: 12345; 36415; 36416; 71045; 71275; 80048; 80053; 81001; 82962; 83880; 84484; 85025; 85378; 93005; 93306; 93970; 94660; 96372; 96375; 99283; G0378; J0360; J1650; J1815; Q9967

== ENCOUNTER → 2020-01-14 16:26 | Outpatient (BNVA) | payer SELFPAY | PROVIDERS: Family Provider Emergency Medicine; PCP Family Medicine; Visit Provider Family Medicine | DX: I10 Essential (primary) hypertension (principal); F41.9 Anxiety disorder, unspecified; Z12.4 Encounter for screening for malignant neoplasm of cervix | CPT/HCPCS: 88175 ==

== ENCOUNTER → 2020-05-20 17:41 | Outpatient (BNVA) | payer SELFPAY | PROVIDERS: Family Provider Emergency Medicine; PCP Family Medicine; Visit Provider Family Medicine | DX: I10 Essential (primary) hypertension (principal); F41.9 Anxiety disorder, unspecified; E11.69 Type 2 diabetes mellitus with other specified complication; Z23 Encounter for immunization; F33.1 Major depressive disorder, recurrent, moderate; I26.99 Other pulmonary embolism without acute cor pulmonale | CPT/HCPCS: 80053; 80061; 83036 ==

== ENCOUNTER 2021-07-02 16:28 | Emergency (ER) | payer MEDICAID, SELFPAY ==
[2021-07-02 16:35] VITALS: BP 168/103; PULSE 89; RESP 18; TEMP 36.9; O2SAT 95; BMI 48.6
--- NOTE | 2021-07-02 17:25 | USR_ITS ---
PROCEDURE INFORMATION: Exam: US Duplex Right Lower Extremity Veins, Limited Exam date and time: 07/02/2021 5:25 PM Age: 50 years old Clinical indication: Pain; Leg, lower; Right; Patient HX: Last year had admission for pe. Both lower legs had dvt. She has recently stopped thinners; Additional info: HX of emboli, off blood thinners x 1 month TECHNIQUE: Imaging protocol: Real-time Duplex ultrasound of the Right Lower Extremity with 2-D rubalcava scale, color Doppler flow and spectral waveform analysis with image documentation. Limited exam was focused on the right lower extremity veins. COMPARISON: No relevant prior studies available. FINDINGS: Right deep veins: Venous Doppler ultrasound of the right lower extremity:. Normal compressibility of the deep veins of the right lower extremity. Normal Doppler wave form with evidence of augmentation within these deep veins. Right superficial veins: Unremarkable. Saphenofemoral junction is patent without thrombus. Soft tissues: Unremarkable. Other findings: Thrombus within the lesser saphenous [place]. US/[place] [id number] IMPRESSION: 1. No evidence of deep venous thrombosis of the right lower extremity. No thrombus within the common femoral vein, superficial femoral vein, popliteal vein, peroneal vein or posterior tibial vein. 2. Thrombus within the lesser saphenous vein. Radiation Dose CTDIVOL = (mGy): DLP = (mGy-cm)
--- NOTE | 2021-07-02 17:34 | W.ED.EXTPRO ---
HPI - Extremity Problem General: Chief complaint: Extremity Problem,Nontraumatic Stated complaint: RIGHT LEG PAINS AND SWELLING Time Seen by Provider: 07/02/21 17:18 History of Present Illness: HPI Narrative: Patient states she has had right lower extremity pain for 1 to 2 weeks. Just got off her blood thinner which was Eliquis x1 month ago due to cost of medicine. Patient history of pulmonary emboli earlier to to Covid. She feels pain in her right lower extremity from the knee down. Says it has appeared to swell. MD Complaint: extremity pain and extremity swelling Onset (ago): week(s) Pain Consistency: constant Location: right and lower extremity Severity scale (1-10): 3 Quality: aching Radiation: distal Relieving factors: immobilization Exacerbating factors: range of motion Associated symptoms: Reports no associated symptoms; Deny chest pain, fever(s) or rash Context: history of DVT (History of pulmonary emboli.) Review of Systems Const: Denies: fever(s), chills or body aches Eyes: Denies: change in vision or blurry vision ENMT: Denies: throat pain or nasal congestion Card: Denies: chest pain or dyspnea on exertion Resp: Denies: dyspnea, productive cough or non-productive cough GI: Denies: abdominal pain, nausea or vomiting Musc: Reports: extremity pain (Right lower) Skin/Breast: Denies: rash Neuro: Denies: headache(s) Psych: Denies: anxiety or depression Reggie/Lymph: Denies: easy bruising PFSH ED PFSH: Medical History (Updated 07/02/21 @ 19:30 by NOEMI Paulson) Anxiety Asthma COPD (chronic obstructive pulmonary disease) Degenerative joint disease Depression Diabetes Diabetic neuropathy DUB (dysfunctional uterine bleeding) Hypertension, benign PTSD (post-traumatic stress disorder) Sleep apnea Type 2 diabetes mellitus Surgical History H/O section H/O foot surgery H/O knee surgery History of appendectomy Family History Other Cancer Diabetes Hypertension Social History Smoking and tobacco status: never smoked Alcohol intake: never Household members: spouse Housing: House Current gender identity: Female Female Reproductive History: Spontaneous abortions: No Physical Exam Const: COMMON NORMALS: no acute distress, average body habitus and patient oriented x3 HENMT: COMMON NORMALS: normocephalic HEAD & SCALP: normal to inspection and normocephalic FACE & SINUS: normal facial exam Eye: COMMON NORMALS: conjunctivae normal GENERAL EYE: appearance normal, both eyes and all related structures CONJUNCTIVA: Yes conjunctivae normal Neck/C-Spine: COMMON NORMALS: no JVD Chest: COMMONS NORMALS: normal inspection of the chest Resp: COMMON NORMALS: normal respiratory effort and clear to auscultation bilaterally AUSCULTATION: clear to auscultation bilaterally Cardio: COMMON NORMALS: no JVD, regular rate and regular rhythm RATE: regular rate RHYTHM: regular rhythm GI: COMMON NORMALS: Normal to inspection, nondistended, normoactive bowel sounds present Extremity: COMMON NORMALS: full ROM RIGHT LOWER EXTREMITY: Yes lower leg (Superficial firm areas behind right knee and right upper calf. No noticeab) Right lower leg: Yes neurovascular exam (Distal neurovascular intact.) Neuro: COMMON NORMALS: patient oriented x3 Course Vital Signs: Vital signs: Vital Signs Temperature 98.4 F 07/02/21 16:35 Pulse Rate 83 07/02/21 19:37 Respiratory Rate 20 H 07/02/21 19:37 Blood Pressure 168/103 07/02/21 16:35 Pulse Oximetry 94 07/02/21 19:37 MDM - Extremity (Nontraumatic) MDM Narrative: Medical decision making narrative: Patient presents with tenderness right lower extremity been going on for a couple weeks. Ultrasound revealed superficial phlebitis. Patient been out of her medications for a couple weeks asking for refills for that. Patient does not follow-up with her primary care provider sugar was high at 458. Patient encouraged to follow strict diabetic diet take medication as prescribed and I gave her prescription hold her through for next couple weeks. Patient encouraged follow-up with her primary care provider this coming week. Lab Data: Labs: Lab Results 07/02/21 07/02/21 17:40 17:40 WBC 9.3 10^3/uL 10^3/ uL (4.0-10.0) RBC 5.11 10^6/uL 10^6 /uL (4.1-5.3) Hgb 12.6 g/dL g/dL (11.5-15.3) Hct 40.0 % % (37.0-47.0) MCV 78.3 fl L fl (81-99) MCH 24.7 pg L pg (28.0-34.0) MCHC 31.5 g/dL g/dL (30.0-36.0) RDW 13.2 % % (12.1-15.1) Plt Count 293 10^3/cmm 10^3 /cmm (130-400) MPV 10.6 fL H fL (7.4-10.4) Neut % (Auto) 62.8 % % Lymph % (Auto) 24.6 % % [place] % (Auto) 5.5 % % Eos % (Auto) 5.7 % % Baso % (Auto) 0.6 % % Neut # (Auto) 5.81 10^3/uL 10^3 /uL (1.8-7.7) Lymph # (Auto) 2.3 10^3/uL 10^3/ uL (0.8-4.8) [place] # (Auto) 0.5 10^3/uL 10^3/ uL (0.2-0.9) Eos # (Auto) 0.5 10^3/uL 10^3/ uL (0.0-0.8) Baso # (Auto) 0.1 10^3/uL 10^3/ uL (0.0-0.1) Nucleated RBC % (a uto) 0 % % Nucleated RBCs # 0.0 /100WBC /100W BC Sodium 133 mmol/L L mmol /L (136-145) Potassium 4.4 mmol/L mmol/L (3.5-5.1) Chloride 97 mmol/L L mmol/ L (98-107) Carbon Dioxide 25 mmol/L mmol/L (22-29) Anion Gap 15.4 (5-19) BUN 16 mg/dL mg/dL (6-20) Creatinine 0.8 mg/dL mg/dL (0.5-0.9) GFR Calculation 75.9 mL/min L mL/ min (90-130) Glucose 468 mg/dL H mg/dL (65-115) Calculated Osmolal ity 298 mOsm/kg H mOs m/kg (285-295) Calcium 8.7 mg/dL mg/dL (8.5-10.5) Discharge Plan Discharge Patient Disposition: Home Clinical Impression: Superficial phlebitis, Hyperglycemia Condition: Stable Prescriptions: New glimepiride 4 mg tablet 4 mg PO BID Qty: 20 RF: 0 Paxil 30 mg tablet 30 mg PO DAILY Qty: 20 RF: 0 lisinopril-hydrochlorothiazide 20-25 mg tablet 1 tab PO DAILY Qty: 20 RF: 0 cephalexin 500 mg capsule 500 mg PO Q8H 7 Days Qty: 21 RF: 0 No Action glimepiride 4 mg tablet 4 mg PO BID 30 Days Qty: 60 RF: 2 hydrochlorothiazide 25 mg tablet 25 mg PO DAILY 30 Days Qty: 30 RF: 2 hydroxyzine HCl 25 mg tablet 25 mg PO TID PRN (Reason: anxiety) 30 Days Qty: 90 RF: 2 gabapentin 100 mg capsule 300 mg PO TID MDD 9 caps PRN (Reason: pain) Qty: 30 RF: 0 apixaban 5 mg tablet 5 mg PO BID 30 Days Qty: 60 RF: 12 paroxetine HCl 30 mg tablet See Rx Instructions .ROUTE .COMPLEX Qty: 30 RF: 0 lisinopril 10 mg tablet See Rx Instructions .ROUTE .COMPLEX Qty: 30 RF: 0 Discharge Orders: Discharge ED (Routine); Ordered 07/02/21 Ordered By: Martinez Astudillo Referrals: Sangeeta Camacho MD [Primary Care Provider] - Discharge Diet: Usual diet Discharge Activity: Increase activity as tolerated Patient Instructions: Hyperglycemia, Superficial Thrombophlebitis (ED) Activity Restrictions/Additional Instructions: Follow-up with medical provider as directed. Take medications as prescribed. Return to the ER or your medical provider if condition worsens. Please read and understand discharge instructions. If any questions ask please. Make sure that you see your primary care provider next week or 2. Check your blood sugar daily at least make sure you get blood sugar under better control. Can apply moist heat to the leg to help with discomfort. 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
[2021-07-02 18:16] LABS: Basophils # 0.1 10^3/uL (0.0-0.1); Basophils % 0.6 %; Eosinophils # 0.5 10^3/uL (0.0-0.8); Eosinophils % 5.7 %; Hemoglobin 12.6 g/dL (11.5-15.3); Lymphocytes # 2.3 10^3/uL (0.8-4.8); Lymphocytes % 24.6 %; Mean Corpuscular HGB Conc 31.5 g/dL (30.0-36.0); Mean Corpuscular Hemoglobin 24.7 pg (28.0-34.0); Mean Corpuscular Volume 78.3 fl (81-99); Mean Platelet Volume 10.6 fL (7.4-10.4); Monocytes # 0.5 10^3/uL (0.2-0.9); Monocytes % 5.5 %; Neutrophils # 5.81 10^3/uL (1.8-7.7); Neutrophils % 62.8 %; Nucleated Red Blood Cells % 0 %; Platelet Count 293 10^3/cmm (130-400); Red Blood Count 5.11 10^6/uL (4.1-5.3); Red Cell Distribution Width 13.2 % (12.1-15.1); White Blood Count 9.3 10^3/uL (4.0-10.0)
[2021-07-02 18:33] LABS: Anion Gap 15.4 (5-19); Blood Urea Nitrogen 16 mg/dL (6-20); Calcium 8.7 mg/dL (8.5-10.5); Carbon Dioxide 25 mmol/L (22-29); Chloride 97 mmol/L (98-107); Glomerular Filtration Rate 75.9 mL/min (90-130); Glucose 468 mg/dL (65-115); Osmolality Calculated 298 mOsm/kg (285-295); Potassium 4.4 mmol/L (3.5-5.1); Sodium 133 mmol/L (136-145)
[2021-07-02] MEDS: cephALEXin 500 mg Capsule PO (19:21)
[2021-07-02 19:37] VITALS: PULSE 83; RESP 20; O2SAT 94
== END 2021-07-02 19:37 | disposition home or self-care (01) ==
PROVIDERS: Emergency Provider Nurse Practitioner Family; PCP Family Medicine
DX: I80.01 Phlebitis and thrombophlebitis of superficial vessels of right lower extremity (principal); R73.9 Hyperglycemia, unspecified
CPT/HCPCS: 80048; 85025; 93971; 99283

== ENCOUNTER 2021-08-27 14:42 | Emergency (ER) | payer MEDICAID, SELFPAY ==
--- NOTE | 2021-08-27 14:48 | XR_ITS ---
WS: [id number] Exam: XR chest 1V portable [id number] Date/Time of Exam: 08/27/2021 2:48 PM Reason For Exam: cough Comparison 12/04/2019. Findings: The lungs are clear and fully expanded. Costophrenic angles are sharp. No infiltrates. Bronchovascula r relief appears normal. Cardiac silhouette is unremarkable. Bony elements are intact. XR/XR chest 1V portable [id number] IMPRESSION: Unremarkable chest radiograph.
[2021-08-27 16:02] VITALS: BP 134/100; PULSE 90; RESP 14; TEMP 37.1; O2SAT 94; BMI 44.2
--- NOTE | 2021-08-27 17:21 | ED_ITS ---
HPI - COVID General: Chief Complaint: COVID symptoms Stated Complaint: sick for 3 weeks cough Time Seen by Provider: 08/27/21 17:15 Triage information: Has fever, cough or shortness of breath . No known COVID + exposure last 14 days History of Present Illness: HPI Narrative: 50-year-old female comes in today for complaints of cough and congestion for the last 3 weeks. Patient feels that she had a sinus infection at first but over the last 3 weeks it seems to have gone to her chest. Patient reports wheezing and a cough. Patient has had no treatment with antibiotics or other medications. Patient denies any chest pain or significant shortness of breath. Patient appears mildly unwell and not toxic. Patient appears in no pain. Patient reports no COVID exposure. Patient does not wish to have COVID-19 testing. COVID 19 common symptoms: positive non-productive cough COVID Results: No Data to Display Review of Systems Resp: Reports: non-productive cough and wheezing [facility] PFSH: Medical History (Updated 08/27/21 @ 17:23 by NOEMI Steven) Anxiety Asthma COPD (chronic obstructive pulmonary disease) Degenerative joint disease Depression Diabetes Diabetic neuropathy DUB (dysfunctional uterine bleeding) Hypertension, benign PTSD (post-traumatic stress disorder) Sleep apnea Type 2 diabetes mellitus Surgical History H/O section H/O foot surgery H/O knee surgery History of appendectomy Family History Other Cancer Diabetes Hypertension Social History Smoking and tobacco status: never smoked Alcohol intake: never Household members: spouse Housing: House Current gender identity: Female Female Reproductive History: Spontaneous abortions: No Physical Exam Const: COMMON NORMALS: patient oriented x3 GENERAL APPEARANCE: well kempt NUTRITIONAL APPEARANCE: obese HENMT: COMMON NORMALS: TM's normal bilaterally NOSE: Nasal discharge present TYMPANIC MEMBRANE: TM's normal bilaterally THROAT: posterior oropharynx abnormal erythema Eye: COMMON NORMALS: Equal, round and reactive pupils present and EOMs intact bilaterally PUPIL: Yes Equal, round and reactive pupils present Neck/C-Spine: COMMON NORMALS: full ROM Lymph: LYMPHATIC: no lymphadenopathy noted Resp: COMMON NORMALS: normal respiratory effort EFFORT & INSPECTION: Yes able to speak in complete sentences AUSCULTATION: wheezes Cardio: COMMON NORMALS: regular rate and regular rhythm RATE: regular rate RHYTHM: regular rhythm Extremity: COMMON NORMALS: normal to inspection Neuro: COMMON NORMALS: patient oriented x3 Psych: APPEARANCE: Yes well kempt Skin: COMMON NORMALS: no rashes or lesions noted GENERAL SKIN EXAM: no rashes or lesions noted Course Vital Signs: Vital signs: Vital Signs Temperature 98.7 F 08/27/21 16:02 Pulse Rate 90 08/27/21 16:02 Respiratory Rate 14 08/27/21 16:02 Blood Pressure 134/100 08/27/21 16:02 Pulse Oximetry 94 08/27/21 16:02 MDM - COVID MDM Narrative: Medical decision making narrative: 50-year-old female comes in today with illness for 3 weeks. Patient reports started mainly as a sinus infection but seems to have gone into her chest causing more coughing with wheezing. Patient denies smoking. On exam lungs have wheezing throughout. Skin is warm and dry. Vital signs are normal. Differential diagnosis includes upper respiratory infection, acute bronchitis, asthma. We will treat patient for bronchitis with 1 dose of steroid 10 mg of dexamethasone, doxycycline 100 mg twice a day for 7 days, and albuterol inhaler. Reviewed exam with patient with recommendations for treatment for acute bronchitis. Patient reported understanding of care plan and need for follow-up or return to the ER for worsening symptoms. Antibiotics were prescribed since patient been ill for about 3 weeks with worsening symptoms. Checks x-ray noted no infiltrates or pneumonia. COVID Results: No Data to Display Discharge Plan Discharge Patient Disposition: Home Clinical Impression: Bronchitis Condition: Stable Prescriptions: New doxycycline monohydrate 100 mg capsule 100 mg PO BID 7 Days Qty: 14 RF: 0 No Action glimepiride 4 mg tablet 4 mg PO BID 30 Days Qty: 60 RF: 2 hydrochlorothiazide 25 mg tablet 25 mg PO DAILY 30 Days Qty: 30 RF: 2 hydroxyzine HCl 25 mg tablet 25 mg PO TID PRN (Reason: anxiety) 30 Days Qty: 90 RF: 2 gabapentin 100 mg capsule 300 mg PO TID MDD 9 caps PRN (Reason: pain) Qty: 30 RF: 0 apixaban 5 mg tablet 5 mg PO BID 30 Days Qty: 60 RF: 12 paroxetine HCl 30 mg tablet See Rx Instructions .ROUTE .COMPLEX Qty: 30 RF: 0 lisinopril 10 mg tablet See Rx Instructions .ROUTE .COMPLEX Qty: 30 RF: 0 glimepiride 4 mg tablet 4 mg PO BID Qty: 20 RF: 0 Paxil 30 mg tablet 30 mg PO DAILY Qty: 20 RF: 0 lisinopril-hydrochlorothiazide 20-25 mg tablet 1 tab PO DAILY Qty: 20 RF: 0 Discharge Orders: Discharge ED (Routine); Ordered 08/27/21 Ordered By: Ethan Haddad Referrals: Sangeeta Cmaacho MD [Primary Care Provider] - Discharge Diet: Usual diet Discharge Activity: Increase activity as tolerated Patient Instructions: Acute Bronchitis (ED) Activity Restrictions/Additional Instructions: Drink plenty of water. Take antibiotics as directed. Follow-up with primary care for further instructions. Return to the ER for new concerns. Coding Level of Care Code ED Converting Technician for Ej Raygoza
[2021-08-27] MEDS: dexamethasone 4 mg Tablet 10 MG PO (17:32)
[2021-08-27] MEDS: doxycycline 100 mg Tablet PO (17:32)
[2021-08-27 17:35] VITALS: O2SAT 94
== END 2021-08-27 17:36 | disposition home or self-care (01) ==
PROVIDERS: Emergency Provider Nurse Practitioner Family; PCP Family Medicine
DX: J20.9 Acute bronchitis, unspecified (principal); J44.0 Chronic obstructive pulmonary disease with (acute) lower respiratory infection; E11.40 Type 2 diabetes mellitus with diabetic neuropathy, unspecified; I10 Essential (primary) hypertension; Z79.01 Long term (current) use of anticoagulants; Z79.84 Long term (current) use of oral hypoglycemic drugs
CPT/HCPCS: 71045; 99283; J3535; J8540

== ENCOUNTER → 2021-10-13 15:02 | Outpatient (BNVA) | payer BC, MEDICAID, SELFPAY | PROVIDERS: PCP Family Medicine; Visit Provider Family Medicine | DX: I10 Essential (primary) hypertension (principal); E11.69 Type 2 diabetes mellitus with other specified complication; M17.11 Unilateral primary osteoarthritis, right knee; Z13.220 Encounter for screening for lipoid disorders; Z13.6 Encounter for screening for cardiovascular disorders | CPT/HCPCS: 73562; 80053; 80061; 83036 ==

== ENCOUNTER → 2022-02-16 15:08 | Outpatient (BNVA) | payer BC, MEDICAID, SELFPAY | PROVIDERS: PCP Family Medicine; Visit Provider Specialist | DX: M17.0 Bilateral primary osteoarthritis of knee (principal); E66.01 Morbid (severe) obesity due to excess calories; Z68.42 Body mass index [BMI] 45.0-49.9, adult; I26.99 Other pulmonary embolism without acute cor pulmonale; I82.403 Acute embolism and thrombosis of unspecified deep veins of lower extremity, bilateral; E11.69 Type 2 diabetes mellitus with other specified complication; E11.42 Type 2 diabetes mellitus with diabetic polyneuropathy | CPT/HCPCS: 73560; 73565; 99204; 99205 ==

== ENCOUNTER → 2022-02-17 10:23 | Outpatient (BNVA) | payer BC, MEDICAID, SELFPAY | PROVIDERS: PCP Family Medicine; Visit Provider Family Medicine | DX: E11.40 Type 2 diabetes mellitus with diabetic neuropathy, unspecified (principal); E11.69 Type 2 diabetes mellitus with other specified complication; I10 Essential (primary) hypertension; L21.9 Seborrheic dermatitis, unspecified; B35.3 Tinea pedis; Z68.42 Body mass index [BMI] 45.0-49.9, adult; Z13.29 Encounter for screening for other suspected endocrine disorder; R53.83 Other fatigue; E11.42 Type 2 diabetes mellitus with diabetic polyneuropathy; M17.11 Unilateral primary osteoarthritis, right knee; K08.9 Disorder of teeth and supporting structures, unspecified | CPT/HCPCS: 80053; 83036; 84443 ==

== ENCOUNTER → 2022-05-17 13:58 | Outpatient (BNVA) | payer BC, MEDICAID, SELFPAY | PROVIDERS: PCP Family Medicine; Visit Provider Family Medicine | DX: E11.69 Type 2 diabetes mellitus with other specified complication (principal); I10 Essential (primary) hypertension; F33.1 Major depressive disorder, recurrent, moderate; F41.9 Anxiety disorder, unspecified; E11.40 Type 2 diabetes mellitus with diabetic neuropathy, unspecified; E11.42 Type 2 diabetes mellitus with diabetic polyneuropathy; Z68.42 Body mass index [BMI] 45.0-49.9, adult | CPT/HCPCS: 80048; 83036 ==

== ENCOUNTER → 2022-06-02 15:29 | Outpatient (BNVA) | payer BC, MEDICAID, SELFPAY | PROVIDERS: PCP Family Medicine; Visit Provider Family Medicine | DX: N18.9 Chronic kidney disease, unspecified (principal) | CPT/HCPCS: 80048 ==

== ENCOUNTER 2022-07-26 23:04 | Emergency (ER) | payer MEDICARE, BC, MEDICAID, SELFPAY ==
[2022-07-26 23:08] VITALS: BP 162/93; PULSE 80; RESP 19; TEMP 37.1; O2SAT 97; BMI 39.8
--- NOTE | 2022-07-26 23:31 | ECG_ITS ---
[facility] Test Date: 2022-07-26 Pat Name: Ivon Elizabeth Department: Room: Gender: Female Manager Strategic: : 1970 Requested By: Yuliana Miller Order Number: [id number] Blaire MD: Lashawn Padilla M.D. Measurements Intervals [place] Rate: 75 P: 26 UT: 179 QRS: 31 QRSD: 105 T: 51 QT: 374 QTc: 418 Interpretive Statements SINUS RHYTHM No previous ECG available for comparison Electronically Signed On 07-27-2022 10:12:41 ACCOUNTS PAYABLE ASSISTANT by Lashawn Padilla M.D. [id number]
--- NOTE | 2022-07-26 23:31 | USR_ITS ---
PROCEDURE INFORMATION: Exam: US Duplex Lower Extremity Veins, Bilateral Exam date and time: 07/26/2022 11:52 PM Age: 51 years old Clinical indication: Pain; Other: Bilateral popliteal regions x 2 weeks; Patient HX: History of prior bilateral le dvts with pulmonary emboli Dec, 2020. ; Additional info: Pain popliteal region bilateral-hx dvt and pe TECHNIQUE: Imaging protocol: Real-time Duplex ultrasound of the bilateral extremities with 2-D rubalcava scale, color Doppler flow and spectral waveform analysis with image documentation. Complete exam focused on the bilateral lower extremity veins. COMPARISON: 1. CR XR knees AP WB w RT lmt ORTH 02/16/2022 3:14 PM 2. US Right lower extremity veins, report only 07/02/2021 FINDINGS: Right deep veins: Patent and compressible right common femoral and proximal femoral veins. Age-indeterminate partially compressible nonocclusive thrombus demonstrated in the distal right femoral vein. Patent and compressible right popliteal vein. Patent and compressible visualized right posterior tibial and peroneal veins. Right superficial veins: Saphenofemoral junction is patent without thrombus. Left deep veins: Patent and compressible left common femoral and proximal femoral veins. Age indeterminate partially compressible nonocclusive thrombus demonstrated in the distal left femoral vein. Patent and compressible left popliteal vein. Patent and compressible visualized left posterior tibial and peroneal veins. Left superficial veins: Saphenofemoral junction is patent without thrombus. Soft tissues: No significant soft tissue abnormalities. US/[place] [id number] IMPRESSION: Age-indeterminate partially compressible nonocclusive thrombus demonstrated in the bilateral distal femoral veins. While the findings likely represent residual chronic changes from prior DVTs, possible superimposed acute on chronic nonocclusive bilateral distal femoral vein thrombus is not excluded.
--- NOTE | 2022-07-26 23:31 | XRR_ITS ---
PROCEDURE INFORMATION: Exam: XR Chest Exam date and time: 07/26/2022 11:39 PM Age: 51 years old Clinical indication: Shortness of breath; Patient HX: SOB TECHNIQUE: Imaging protocol: Radiologic exam of the chest. Views: 1 view. COMPARISON: CR XR chest 1V portable [id number] 08/27/2021 3:01 PM FINDINGS: Lungs: No significant or acute findings. No consolidation. Pleural spaces: No significant costophrenic angle blunting. No pneumothorax. Heart/Mediastinum: Heart size within normal limits given the portable AP technique. Bones/joints: No acute osseous abnormality. Soft tissues: Large body habitus. XR/XR chest 1V portable [id number] IMPRESSION: No acute abnormality demonstrated.
--- NOTE | 2022-07-26 23:34 | W.ED.EXTPRO ---
Documented by User: RADHA Henriquez 07/26/22 23:59 HPI - Extremity Problem General: Chief complaint: Extremity Problem,Nontraumatic Stated complaint: bilateral lower extremity pain Time Seen by Provider: 07/26/22 23:06 History of Present Illness: Patient is in today for leg pain. Patient reports that for 4 to 5 days she has been having lower extremity pain behind her knees worse on the right side. She reports initially she thought this was just knee pain that was causing her problems, but she states that today it feels much more like it did when she had a blood clot. She reports that she has also noticed some shortness of breath over the past 2 days. She denies any fever, chills. She denies any injury to the legs. She offers that she had blood clots in her legs and blood clots in her lungs previously. She reports this is very similar to how she felt then. She reports that she has been on Eliquis. He denies recent extended travel but states that she has been going back and forth to [place] more frequently. Associated symptoms: Reports chest pain (Intermittent chest pressure); Deny fever(s) Review of Systems Const: Denies: fever(s), chills or body aches Card: Reports: chest pain (Intermittent chest pressure); Denies: palpitations Resp: Reports: dyspnea; Denies: productive cough or non-productive cough GI: Denies: abdominal pain, nausea or vomiting : Denies: flank pain, difficulty voiding or dysuria Musc: Reports: other (Pain bilateral lower extremities behind the knees and up posterior thighs) [facility] ED PFSH: Medical History Anxiety Asthma COPD (chronic obstructive pulmonary disease) Degenerative joint disease Depression Diabetes Diabetic neuropathy DUB (dysfunctional uterine bleeding) Hypertension, benign PTSD (post-traumatic stress disorder) Sleep apnea Type 2 diabetes mellitus Metformin intolerance Surgical History H/O section H/O foot surgery H/O knee surgery History of appendectomy Family History Other Cancer Diabetes Hypertension Social History Smoking and tobacco status: never smoked Alcohol intake: never Household members: spouse Housing: House Current gender identity: Female Female Reproductive History: Spontaneous abortions: No Physical Exam Const: COMMON NORMALS: no acute distress, patient oriented x3 and alert NUTRITIONAL APPEARANCE: obese morbidly obese Neck/C-Spine: COMMON NORMALS: no JVD Resp: COMMON NORMALS: normal respiratory effort, No use of accessory muscles and clear to auscultation bilaterally AUSCULTATION: clear to auscultation bilaterally Cardio: COMMON NORMALS: no JVD, regular rate, regular rhythm, S1 normal heart sound present and S2 normal heart sound present RATE: regular rate RHYTHM: regular rhythm HEART SOUNDS: S1 normal heart sound present and S2 normal heart sound present Extremity: NARRATIVE EXTREMITY EXAM: Patient has some tenderness to palpation bilateral popliteal region. No obvious erythema, soft tissue deformity, swelling. CSM to distal feet is within normal limits. Neuro: COMMON NORMALS: patient oriented x3 SENSORIUM/ORIENTATION: Yes alert Course Vital Signs: Vital signs: Vital Signs Temperature 98.7 F 07/26/22 23:08 Pulse Rate 76 07/27/22 00:34 Respiratory Rate 18 07/27/22 00:34 Blood Pressure 134/91 07/27/22 00:34 Pulse Oximetry 97 07/27/22 00:34 Oxygen Delivery Me thod 07/26/22 23:08 MDM - Extremity (Nontraumatic) Medical Decision Making Considered DVT, PE, lower extremity pain Consulted with Dr. Washington. Cardiac labs and bilateral lower extremity venous duplex ordered. Lab Data 07/26/22 23:45 07/26/22 23:45 Radiology Impressions Chest X-Ray 07/26/22 23:31 IMPRESSION: No acute abnormality demonstrated. Laboratory Results WBC 9.5 10^3/uL (4.0-10.0) 07/26/22 23:45 RBC 4.72 10^6/uL (4.1-5.3) 07/26/22 23:45 Hgb 12.4 g/dL (11.5-15.3) 07/26/22 23:45 Hct 40.5 % (37.0-47.0) 07/26/22 23:45 MCV 85.8 fl (81-99) 07/26/22 23:45 MCH 26.3 pg (28.0-34.0) L 07/26/22 23:45 MCHC 30.6 g/dL (30.0-36.0) 07/26/22 23:45 RDW 13.0 % (12.1-15.1) 07/26/22 23:45 Plt Count 316 10^3/cmm (130-400) 07/26/22 23:45 MPV 10.4 fL (7.4-10.4) 07/26/22 23:45 Neut % (Auto) 56.5 % 07/26/22 23:45 Lymph % (Auto) 33.1 % 07/26/22 23:45 [place] % (Auto) 5.8 % 07/26/22 23:45 Eos % (Auto) 3.5 % 07/26/22 23:45 Baso % (Auto) 0.6 % 07/26/22 23:45 Neut # (Auto) 5.33 10^3/uL (1.8-7.7) 07/26/22 23:45 Lymph # (Auto) 3.1 10^3/uL (0.8-4.8) 07/26/22 23:45 [place] # (Auto) 0.6 10^3/uL (0.2-0.9) 07/26/22 23:45 Eos # (Auto) 0.3 10^3/uL (0.0-0.8) 07/26/22 23:45 Baso # (Auto) 0.1 10^3/uL (0.0-0.1) 07/26/22 23:45 Nucleated RBC % (auto) 0 % 07/26/22 23:45 Nucleated RBCs # 0.0 /100WBC 07/26/22 23:45 PT 13.70 SECONDS (12.1-14.9) 07/26/22 23:45 INR 1.02 (0.8-1.2) 07/26/22 23:45 APTT 31.1 SECONDS (23.9-36.7) 07/26/22 23:45 Sodium 138 mmol/L (136-145) 07/26/22 23:45 Potassium 4.2 mmol/L (3.5-5.1) 07/26/22 23:45 Chloride 103 mmol/L (98-107) 07/26/22 23:45 Carbon Dioxide 26 mmol/L (22-29) 07/26/22 23:45 Anion Gap 13.2 (5-19) 07/26/22 23:45 BUN 21 mg/dL (6-20) H 07/26/22 23:45 Creatinine 0.8 mg/dL (0.5-0.9) 07/26/22 23:45 GFR Calculation 75.6 mL/min (90-130) L 07/26/22 23:45 Glucose 182 mg/dL (65-115) H 07/26/22 23:45 Calculated Osmolality 294 mOsm/kg (285-295) 07/26/22 23:45 Calcium 9.1 mg/dL (8.5-10.5) 07/26/22 23:45 Total Bilirubin 0.2 mg/dL (0.15-1.2) 07/26/22 23:45 AST 12 U/L (0-32) 07/26/22 23:45 ALT 10 U/L (0-33) 07/26/22 23:45 Alkaline Phosphatase 106 U/L (35-105) H 07/26/22 23:45 Creatine Kinase 42 U/L (26-192) 07/26/22 23:45 Troponin T Baseline 8 ng/L (0-10) 07/26/22 23:45 NT-Pro-B Natriuret Pep 185 pg/mL (0-125) H 07/26/22 23:45 Total Protein 6.7 g/dL (6.6-8.7) 07/26/22 23:45 Albumin 3.9 g/dL (3.5-5.2) 07/26/22 23:45 Globulin 2.8 g/dL (1.3-4.6) 07/26/22 23:45 Lipase 56 U/L (13-60) 07/26/22 23:45 Urine Color Yellow (Yellow) 07/27/22 00:30 Urine Appearance Clear (CLEAR) 07/27/22 00:30 Urine pH 5 (5-7) 07/27/22 00:30 Ur Specific [place] 1.020 (1.005-1.030) 07/27/22 00:30 Urine Protein Neg (Negative) 07/27/22 00:30 Urine Glucose (UA) 4+ (Normal) H 07/27/22 00:30 Urine Ketones Negative (Negative) 07/27/22 00:30 Urine Blood Neg (Negative) 07/27/22 00:30 Urine Nitrate Negative (Negative) 07/27/22 00:30 Urine Bilirubin Neg (Negative) 07/27/22 00:30 Urine Urobilinogen Norm mg/dL (Negative) 07/27/22 00:30 Ur Leukocyte Esterase Negative (Negative) 07/27/22 00:30 Discharge Plan Discharge Patient Disposition: Home Clinical Impression: Lower extremity pain Condition: Stable Prescriptions: No Action apixaban 5 mg tablet 5 mg PO BID 30 Days Qty: 60 12RF miscellaneous medical supply Misc See Rx Instructions miscellaneous .COMPLEX Qty: 1 0RF Rx Instructions: BiPAP mask, hoses and supplies miscellaneous; ketoconazole 2 % shampoo 1 applic topical .2x weekly Qty: 120 2RF Rx Instructions: wash hair/scalp fluconazole 150 mg tablet 150 mg PO Q3D 0 Days Qty: 2 1RF Rx Instructions: may repeat second dose 3 days after first dose clotrimazole 1 % cream 1 applic topical BID 14 Days Qty: 45 0RF Rx Instructions: to left foot glipizide 5 mg tablet extended release 24hr 5 mg PO DAILY 30 Days Qty: 30 2RF lisinopril 5 mg tablet 5 mg PO DAILY 30 Days Qty: 30 2RF Paxil 30 mg tablet 30 mg PO DAILY 30 Days Qty: 30 2RF meloxicam 15 mg tablet 15 mg PO DAILY 30 Days Qty: 30 2RF Rx Instructions: WITH FOOD hydrochlorothiazide 25 mg tablet 25 mg PO DAILY 30 Days Qty: 30 2RF Rx Instructions: 340B hydroxyzine HCl 25 mg tablet 25 mg PO TID PRN (Reason: anxiety) 30 Days Qty: 90 2RF Rx Instructions: 340B gabapentin 100 mg capsule 100 mg PO TID PRN (Reason: pain) Qty: 90 2RF Trulicity 0.75 mg/0.5 mL pen injector 0.75 mg SUBCUT .WEEKLY Qty: 2 2RF empagliflozin 10 mg tablet 10 mg PO QAM 30 Days Qty: 30 2RF Discharge Orders: Discharge ED (Routine); Ordered 07/27/22 Ordered By: Hailey Washington Referrals: Sangeeta Camacho MD [Primary Care Provider] - 1-3 days Discharge Diet: Advance as tolerated Discharge Activity: Resume usual activity Patient Instructions: Leg Pain (ED) Coding Level of Care Code ED Research Center Director for Chg Fwd Exam Expanded Problem Focused Documented by User: Hailey Washington MD 07/27/22 01:02 HPI - Extremity Problem General: Chief complaint: Extremity Problem,Nontraumatic Stated complaint: bilateral lower extremity pain Time Seen by Provider: 07/26/22 23:06 [facility] PFSH: Medical History Anxiety Asthma COPD (chronic obstructive pulmonary disease) Degenerative joint disease Depression Diabetes Diabetic neuropathy DUB (dysfunctional uterine bleeding) Hypertension, benign PTSD (post-traumatic stress disorder) Sleep apnea Type 2 diabetes mellitus Metformin intolerance Surgical History H/O section H/O foot surgery H/O knee surgery History of appendectomy Family History Other Cancer Diabetes Hypertension Social History Smoking and tobacco status: never smoked Alcohol intake: never Household members: spouse Housing: House Current gender identity: Female Course Vital Signs: Vital signs: Vital Signs Temperature 98.7 F 07/26/22 23:08 Pulse Rate 76 07/27/22 00:34 Respiratory Rate 18 07/27/22 00:34 Blood Pressure 134/91 07/27/22 00:34 Pulse Oximetry 97 07/27/22 00:34 Oxygen Delivery Me thod 07/26/22 23:08 MDM - Extremity (Nontraumatic) Medical Decision Making Considered DVT, PE, lower extremity pain Consulted with Dr. Washington. Cardiac labs and bilateral lower extremity venous duplex ordered. Patient presents here with lower extremity pain likely from her chronic DVT she has no signs of acute DVT on her ultrasound her blood work here is normal she is in no respiratory distress no signs of pulmonary embolism she is on blood thinner she is to continue she is stable for discharge. Lab Data 07/26/22 23:45 07/26/22 23:45 Radiology Impressions Chest X-Ray 07/26/22 23:31 IMPRESSION: No acute abnormality demonstrated. Laboratory Results WBC 9.5 10^3/uL (4.0-10.0) 07/26/22 23:45 RBC 4.72 10^6/uL (4.1-5.3) 07/26/22 23:45 Hgb 12.4 g/dL (11.5-15.3) 07/26/22 23:45 Hct 40.5 % (37.0-47.0) 07/26/22 23:45 MCV 85.8 fl (81-99) 07/26/22 23:45 MCH 26.3 pg (28.0-34.0) L 07/26/22 23:45 MCHC 30.6 g/dL (30.0-36.0) 07/26/22 23:45 RDW 13.0 % (12.1-15.1) 07/26/22 23:45 Plt Count 316 10^3/cmm (130-400) 07/26/22 23:45 MPV 10.4 fL (7.4-10.4) 07/26/22 23:45 Neut % (Auto) 56.5 % 07/26/22 23:45 Lymph % (Auto) 33.1 % 07/26/22 23:45 [place] % (Auto) 5.8 % 07/26/22 23:45 Eos % (Auto) 3.5 % 07/26/22 23:45 Baso % (Auto) 0.6 % 07/26/22 23:45 Neut # (Auto) 5.33 10^3/uL (1.8-7.7) 07/26/22 23:45 Lymph # (Auto) 3.1 10^3/uL (0.8-4.8) 07/26/22 23:45 [place] # (Auto) 0.6 10^3/uL (0.2-0.9) 07/26/22 23:45 Eos # (Auto) 0.3 10^3/uL (0.0-0.8) 07/26/22 23:45 Baso # (Auto) 0.1 10^3/uL (0.0-0.1) 07/26/22 23:45 Nucleated RBC % (auto) 0 % 07/26/22 23:45 Nucleated RBCs # 0.0 /100WBC 07/26/22 23:45 PT 13.70 SECONDS (12.1-14.9) 07/26/22 23:45 INR 1.02 (0.8-1.2) 07/26/22 23:45 APTT 31.1 SECONDS (23.9-36.7) 07/26/22 23:45 Sodium 138 mmol/L (136-145) 07/26/22 23:45 Potassium 4.2 mmol/L (3.5-5.1) 07/26/22 23:45 Chloride 103 mmol/L (98-107) 07/26/22 23:45 Carbon Dioxide 26 mmol/L (22-29) 07/26/22 23:45 Anion Gap 13.2 (5-19) 07/26/22 23:45 BUN 21 mg/dL (6-20) H 07/26/22 23:45 Creatinine 0.8 mg/dL (0.5-0.9) 07/26/22 23:45 GFR Calculation 75.6 mL/min (90-130) L 07/26/22 23:45 Glucose 182 mg/dL (65-115) H 07/26/22 23:45 Calculated Osmolality 294 mOsm/kg (285-295) 07/26/22 23:45 Calcium 9.1 mg/dL (8.5-10.5) 07/26/22 23:45 Total Bilirubin 0.2 mg/dL (0.15-1.2) 07/26/22 23:45 AST 12 U/L (0-32) 07/26/22 23:45 ALT 10 U/L (0-33) 07/26/22 23:45 Alkaline Phosphatase 106 U/L (35-105) H 07/26/22 23:45 Creatine Kinase 42 U/L (26-192) 07/26/22 23:45 Troponin T Baseline 8 ng/L (0-10) 07/26/22 23:45 NT-Pro-B Natriuret Pep 185 pg/mL (0-125) H 07/26/22 23:45 Total Protein 6.7 g/dL (6.6-8.7) 07/26/22 23:45 Albumin 3.9 g/dL (3.5-5.2) 07/26/22 23:45 Globulin 2.8 g/dL (1.3-4.6) 07/26/22 23:45 Lipase 56 U/L (13-60) 07/26/22 23:45 Urine Color Yellow (Yellow) 07/27/22 00:30 Urine Appearance Clear (CLEAR) 07/27/22 00:30 Urine pH 5 (5-7) 07/27/22 00:30 Ur Specific [place] 1.020 (1.005-1.030) 07/27/22 00:30 Urine Protein Neg (Negative) 07/27/22 00:30 Urine Glucose (UA) 4+ (Normal) H 07/27/22 00:30 Urine Ketones Negative (Negative) 07/27/22 00:30 Urine Blood Neg (Negative) 07/27/22 00:30 Urine Nitrate Negative (Negative) 07/27/22 00:30 Urine Bilirubin Neg (Negative) 07/27/22 00:30 Urine Urobilinogen Norm mg/dL (Negative) 07/27/22 00:30 Ur Leukocyte Esterase Negative (Negative) 07/27/22 00:30 Discharge Plan Discharge Patient Disposition: Home Clinical Impression: Lower extremity pain Condition: Stable Prescriptions: No Action apixaban 5 mg tablet 5 mg PO BID 30 Days Qty: 60 12RF miscellaneous medical supply Misc See Rx Instructions miscellaneous .COMPLEX Qty: 1 0RF Rx Instructions: BiPAP mask, hoses and supplies miscellaneous; ketoconazole 2 % shampoo 1 applic topical .2x weekly Qty: 120 2RF Rx Instructions: wash hair/scalp fluconazole 150 mg tablet 150 mg PO Q3D 0 Days Qty: 2 1RF Rx Instructions: may repeat second dose 3 days after first dose clotrimazole 1 % cream 1 applic topical BID 14 Days Qty: 45 0RF Rx Instructions: to left foot glipizide 5 mg tablet extended release 24hr 5 mg PO DAILY 30 Days Qty: 30 2RF lisinopril 5 mg tablet 5 mg PO DAILY 30 Days Qty: 30 2RF Paxil 30 mg tablet 30 mg PO DAILY 30 Days Qty: 30 2RF meloxicam 15 mg tablet 15 mg PO DAILY 30 Days Qty: 30 2RF Rx Instructions: WITH FOOD hydrochlorothiazide 25 mg tablet 25 mg PO DAILY 30 Days Qty: 30 2RF Rx Instructions: 340B hydroxyzine HCl 25 mg tablet 25 mg PO TID PRN (Reason: anxiety) 30 Days Qty: 90 2RF Rx Instructions: 340B gabapentin 100 mg capsule 100 mg PO TID PRN (Reason: pain) Qty: 90 2RF Trulicity 0.75 mg/0.5 mL pen injector 0.75 mg SUBCUT .WEEKLY Qty: 2 2RF empagliflozin 10 mg tablet 10 mg PO QAM 30 Days Qty: 30 2RF Discharge Orders: Discharge ED (Routine); Ordered 07/27/22 Ordered By: Hailey Washington Referrals: Sangeeta Camacho MD [Primary Care Provider] - 1-3 days Discharge Diet: Advance as tolerated Discharge Activity: Resume usual activity Patient Instructions: Leg Pain (ED) Coding Level of Care Code ED Research Center Director for Ej Fwd Exam Expanded Problem Focused
[2022-07-26 23:57] LABS: Basophils # 0.1 10^3/uL (0.0-0.1); Basophils % 0.6 %; Eosinophils # 0.3 10^3/uL (0.0-0.8); Eosinophils % 3.5 %; Hematocrit 40.5 % (37.0-47.0); Hemoglobin 12.4 g/dL (11.5-15.3); Lymphocytes # 3.1 10^3/uL (0.8-4.8); Lymphocytes % 33.1 %; Mean Corpuscular HGB Conc 30.6 g/dL (30.0-36.0); Mean Corpuscular Hemoglobin 26.3 pg (28.0-34.0); Mean Corpuscular Volume 85.8 fl (81-99); Mean Platelet Volume 10.4 fL (7.4-10.4); Monocytes # 0.6 10^3/uL (0.2-0.9); Monocytes % 5.8 %; Neutrophils # 5.33 10^3/uL (1.8-7.7); Neutrophils % 56.5 %; Nucleated Red Blood Cells % 0 %; Platelet Count 316 10^3/cmm (130-400); Red Blood Count 4.72 10^6/uL (4.1-5.3); White Blood Count 9.5 10^3/uL (4.0-10.0)
[2022-07-27 00:17] LABS: INR 1.02 (0.8-1.2)
[2022-07-27 00:18] LABS: Partial Thromboplastin Time 31.1 SECONDS (23.9-36.7)
[2022-07-27 00:29] LABS: Troponin(5th) Baseline 8 ng/L (0-10)
[2022-07-27 00:34] VITALS: BP 134/91; PULSE 76; RESP 18; O2SAT 97
[2022-07-27 00:34] LABS: Alanine Aminotransferase 10 U/L (0-33); Albumin Level 3.9 g/dL (3.5-5.2); Alkaline Phosphatase 106 U/L (35-105); Anion Gap 13.2 (5-19); Aspartate Amino Transferase 12 U/L (0-32); Blood Urea Nitrogen 21 mg/dL (6-20); Calcium 9.1 mg/dL (8.5-10.5); Carbon Dioxide 26 mmol/L (22-29); Chloride 103 mmol/L (98-107); Creatine Phosphokinase 42 U/L (26-192); Globulin 2.8 g/dL (1.3-4.6); Glomerular Filtration Rate 75.6 mL/min (90-130); Glucose 182 mg/dL (65-115); Lipase 56 U/L (13-60); NT Pro B Type Natriuretic Pept 185 pg/mL (0-125); Osmolality Calculated 294 mOsm/kg (285-295); Potassium 4.2 mmol/L (3.5-5.1); Sodium 138 mmol/L (136-145); Total Bilirubin 0.2 mg/dL (0.15-1.2); Total Protein 6.7 g/dL (6.6-8.7)
[2022-07-27 00:41] LABS: Add Urine Microscopic? NO; Charge for UA Resulting for Rev
[2022-07-27 00:51] LABS: Protein Urine Neg (Negative); Urine Appearance Clear (CLEAR); Urine Color Yellow (Yellow); pH Urine 5 (5-7)
[2022-07-27 00:52] LABS: Bilirubin Urine Neg (Negative); Blood Urine Neg (Negative); Glucose Urine UA 4+ (Normal); Ketones Urine Negative (Negative); Leukocyte Esterase Urine Negative (Negative); Nitrate Urine Negative (Negative); Urobilinogen Urine Norm (Negative)
[2022-07-27 01:09] VITALS: BP 157/85; PULSE 79; RESP 17; O2SAT 95
== END 2022-07-27 01:10 | disposition home or self-care (01) ==
PROVIDERS: Nurse Practitioner Family; Emergency Provider Emergency Medicine; PCP Family Medicine
DX: M79.605 Pain in left leg (principal); M79.604 Pain in right leg; Z79.01 Long term (current) use of anticoagulants; I10 Essential (primary) hypertension; E11.9 Type 2 diabetes mellitus without complications
CPT/HCPCS: 71045; 80053; 81003; 82550; 83690; 83880; 84484; 85025; 85610; 85730; 93005; 93970; 99285

== ENCOUNTER → 2022-08-17 13:32 | Outpatient (BNVA) | payer MEDICARE, BC, MEDICAID, SELFPAY | PROVIDERS: PCP Family Medicine; Visit Provider Nurse Practitioner Family | DX: E11.69 Type 2 diabetes mellitus with other specified complication (principal) | CPT/HCPCS: 80048; 83036 ==

== ENCOUNTER → 2022-11-09 10:10 | Outpatient (BNVA) | payer MEDICARE, MEDICAID, SELFPAY | PROVIDERS: PCP Family Medicine; Visit Provider Family Medicine | DX: E11.22 Type 2 diabetes mellitus with diabetic chronic kidney disease (principal); N18.31 Chronic kidney disease, stage 3a | CPT/HCPCS: 80048; 80061; 83036 ==

== ENCOUNTER → 2023-02-14 10:13 | Outpatient (BNVA) | payer MEDICARE, MEDICAID, SELFPAY | PROVIDERS: PCP Family Medicine; Visit Provider Family Medicine | DX: N18.31 Chronic kidney disease, stage 3a (principal); E11.69 Type 2 diabetes mellitus with other specified complication | CPT/HCPCS: 80048; 83036 ==

== ENCOUNTER 2023-05-03 15:05 | Outpatient (CLI) | payer MEDICARE, MEDICAID, SELFPAY ==
--- NOTE | 2023-05-03 15:35 | MM_ITS ---
WS: [id number] BILATERAL 3D TOMOSYNTHESIS DIGITAL SCREENING MAMMOGRAPHY WITH CAD CLINICAL INFORMATION: Z00.00 - Encounter for general adult medical examination ... HISTORY: Screening mammogram. No current complaints. COMPARISON: 2012 TECHNIQUE: Bilateral CC and MLO views. FINDINGS: Scattered fibroglandular densities bilaterally. No suspicious focal mass, asymmetry, calcifications, or architectural distortion. No evidence of malignancy. Vascular calcification. A few tiny incidental punctate calcifications. IMPRESSION: MM/[place] [id number] BI-RADS: 2-Benign FOLLOW UP: 1 Year Follow-up Recommend return to annual screening mammography.
== END 2023-05-03 15:06 | disposition home or self-care (01) ==
PROVIDERS: PCP Family Medicine; Visit Provider Family Medicine
DX: Z12.31 Encounter for screening mammogram for malignant neoplasm of breast (principal)
CPT/HCPCS: 77063; 77067

== ENCOUNTER → 2023-05-15 11:21 | Outpatient (BNVA) | payer MEDICARE, MEDICAID, SELFPAY | PROVIDERS: PCP Family Medicine; Visit Provider Family Medicine | DX: Z23 Encounter for immunization (principal); E11.40 Type 2 diabetes mellitus with diabetic neuropathy, unspecified; E11.69 Type 2 diabetes mellitus with other specified complication; I10 Essential (primary) hypertension; F33.1 Major depressive disorder, recurrent, moderate; F41.9 Anxiety disorder, unspecified; N18.9 Chronic kidney disease, unspecified; K21.9 Gastro-esophageal reflux disease without esophagitis; N18.31 Chronic kidney disease, stage 3a; G47.33 Obstructive sleep apnea (adult) (pediatric) | CPT/HCPCS: 80048; 83036 ==

== ENCOUNTER → 2023-08-09 10:29 | Outpatient (BNVA) | payer MEDICARE, SELFPAY | PROVIDERS: PCP Family Medicine; Visit Provider Family Medicine | DX: E11.9 Type 2 diabetes mellitus without complications (principal); N18.9 Chronic kidney disease, unspecified | CPT/HCPCS: 83036 ==

== ENCOUNTER 2023-11-06 20:00 | Outpatient (CLI) | payer MEDICARE, SELFPAY | END 2023-11-06 20:01 | disposition home or self-care (01) | LOC: SLEEP 11-07 06:16 | PROVIDERS: PCP Family Medicine; Visit Provider Family Medicine | DX: G47.33 Obstructive sleep apnea (adult) (pediatric) (principal) | CPT/HCPCS: 95811 ==

== ENCOUNTER → 2023-11-14 14:16 | Outpatient (BNVA) | payer MEDICARE, SELFPAY | PROVIDERS: PCP Family Medicine; Visit Provider Family Medicine | DX: E11.69 Type 2 diabetes mellitus with other specified complication (principal); I10 Essential (primary) hypertension | CPT/HCPCS: 80048; 80061; 83036 ==

== ENCOUNTER → 2023-11-30 08:57 | Outpatient (BNVA) | payer MEDICARE, MEDICAID, SELFPAY | PROVIDERS: PCP Family Medicine; Referring Provider Family Medicine; Visit Provider Surgery | DX: K92.2 Gastrointestinal hemorrhage, unspecified (principal); Z80.0 Family history of malignant neoplasm of digestive organs; K21.9 Gastro-esophageal reflux disease without esophagitis | CPT/HCPCS: 99204 ==

== ENCOUNTER 2024-01-03 10:09 | Day surgery (SDC) | payer MEDICARE, MEDICAID, SELFPAY ==
[2024-01-03 10:40] VITALS: BP 179/103; PULSE 86; RESP 18; TEMP 36.2; O2SAT 97; BMI 53.1
[2024-01-03] MEDS: sodium chloride 0.9% 1,000 ML 30 ML IV (11:27)
--- NOTE | 2024-01-03 11:37 | PM.HP ---
Providers/Chief Complaint Primary Care Provider: Sangeeta Camacho MD Chief Complaint: K92.2 History of Present Illness Ivon Ac is a 53 year old female Review of Systems General: Reports: 10 or more systems reviewed and unremarkable except in HPI and below Medications/Allergies Home Medications Medication Instructions Recorded Confirmed Last Taken Type alcohol swabs 1 pad topical TID PRN as needed to 11/09/22 01/03/24 Unknown Rx check blood sugar 30 days #100 ea lancets #100 ea 11/09/22 01/03/24 Unknown Rx miscellaneous medical supply See Rx Instructions miscellaneous 11/09/22 01/03/24 Unknown Rx .COMPLEX #1 ea blood sugar diagnostic (Blood #50 ea 03/08/23 01/03/24 Unknown Rx Glucose Test strips) blood-glucose meter (Blood Glucose #1 ea 05/21/23 01/03/24 Unknown Rx Monitoring kit) apixaban 5 mg tablet 5 mg PO BID 30 days #60 tabs 08/09/23 01/03/24 12/31/23 Rx hydroxyzine HCl 25 mg tablet 25 mg PO TID PRN anxiety 30 days 08/09/23 01/03/24 Unknown Rx #90 tabs gabapentin 100 mg capsule 100 mg PO TID PRN pain 90 days 11/14/23 01/03/24 2 Months Ago Rx #270 caps ~11/03/23 hydrochlorothiazide 25 mg tablet 25 mg PO DAILY 90 days #90 tabs 11/14/23 01/03/24 12/31/23 Rx lisinopril 40 mg tablet 40 mg PO DAILY 90 days #90 tabs 11/14/23 01/03/24 12/31/23 Rx meloxicam 15 mg tablet 15 mg PO DAILY knee pain 90 days 11/14/23 01/03/24 12/31/23 Rx #90 tabs pantoprazole 40 mg tablet,delayed 40 mg PO DAILY 90 days #90 tabs 11/14/23 01/03/24 12/31/23 Rx release paroxetine HCl 30 mg tablet (Paxil) 30 mg PO DAILY 90 days #90 tabs 11/14/23 01/03/24 12/31/23 Rx glipizide 10 mg tablet, extended 10 mg PO BID 90 days #180 tabs 04/30/24 05/29/24 05/26/24 Rx release 24 hr loratadine 10 mg tablet 10 mg PO DAILY 30 days #30 tabs 12/05/23 01/03/24 12/31/23 Rx dulaglutide 4.5 mg/0.5 mL 4.5 mg (0.5 mL) SUBCUT .WEEKLY 28 12/22/23 01/03/24 12/23/23 Rx subcutaneous pen injector days #2 mL fluticasone propionate 50 1 spray intranasal Q12H PRN 01/02/24 01/03/24 Unknown History mcg/actuation nasal Allergy Symptoms spray,suspension (Flonase Allergy Relief) Allergies Allergy/AdvReac Type Severity Reaction Status Date / Time No Known Allergies Allergy Verified 12/08/23 10:27 PFSH Acute PFSH: Medical History Family history of colon cancer Diabetic neuropathy Type 2 diabetes mellitus Metformin and jardiance intolerance COPD (chronic obstructive pulmonary disease) DUB (dysfunctional uterine bleeding) Hypertension, benign Asthma Degenerative joint disease Anxiety PTSD (post-traumatic stress disorder) Depression Sleep apnea Diabetes Surgical History H/O knee surgery H/O section History of appendectomy H/O foot surgery Family History Mother Colon cancer Other Cancer Diabetes Hypertension Social History Smoking and tobacco/nicotine status: never used tobacco/nicotine Alcohol intake: never Substance/Drug Use: never Household members: spouse Housing: House Current gender identity: Female Female Reproductive History: Spontaneous abortions: No Vitals/I&O/Wt Last Vital Signs Temp 97.2 F L 01/03/24 10:40 Pulse 86 01/03/24 10:40 Resp 18 01/03/24 10:40 BP 179/103 01/03/24 10:40 Pulse Ox 97 01/03/24 10:40 O2 Del Method Room Air 01/03/24 10:40 Weight last 48 hrs Weight 300 lb A&P Assessment and plan (1) GERD (gastroesophageal reflux disease): Qualifiers: Esophagitis presence: without esophagitis Qualified Code(s): K21.9 - Gastro-esophageal reflux disease without esophagitis (2) GI bleed: Qualifiers: GI bleed type/associated pathology: unspecified gastrointestinal hemorrhage type Qualified Code(s): K92.2 - Gastrointestinal hemorrhage, unspecified (3) Family history of colon cancer: Plan EGD and colonoscopy Attestations Medical Necessity Statement*: Home Coding Level of Care Code Acute Code for Chg Fwd Diagnoses Gastroesophageal reflux disease without esophagitis K21.9 Esophagitis presence: without esophagitis Gastrointestinal hemorrhage, unspecified gastrointestinal hemorrhage type K92.2 GI bleed type/associated pathology: unspecified gastrointestinal hemorrhage type Family history of colon cancer Z80.0
--- NOTE | 2024-01-03 11:40 | ANES.PREANE2 ---
Pre-Anesthetic Assessment Height/Weight: Height 1.6 m Weight 136.078 kg Temp Pulse Resp BP Pulse Ox O2 Del Method 97.2 F L 86 18 179/103 97 Room Air 01/03/24 10:40 01/03/24 10:40 01/03/24 10:40 01/03/24 10:40 01/03/24 10:40 01/03/24 10:40 Operation Date: 01/03/24 11:15 Proposed Procedures p EGD 61052, 89934, G0105, K92.2, Z80.0, K21.9(Not Applicable) - DO celeste Parks Colonoscopy(Not Applicable) - Pj Hernandez DO Familial anesthetic complications: None Was Beta Karli taken within 24 hours: N/A Was Clonidine taken within 24 hours: N/A Last intake: Intake Last Liquid Date 01/02/24 Last Liquid Time 23:45 Last Solid Date 01/01/24 Last Solid Time 18:00 Social No alcohol and No tobacco Exam alert, oriented x 3, clear to auscultation bilaterally and regular rate & rhythm Airway Submandibular: within normal limits Cervical ROM: within normal limits Mallampati: Class II Dentition: chipped (Upper left and right) and loose (Lower front tooth) History/ROS No significant history except as noted and No significant complaints Pulmonary Asthma, Chronic Obstructive Pulmonary Disease, Exertional Dyspnea and Sleep Apnea (Wears CPAP) CV/HEM Deep Vein Thrombosis and Hypertension None reported Hepatic None reported GI None reported Metabolic Diabetes Mellitus and Morbid Obesity Musc/skel Lower Back Pain Neuropsych Anxiety, Depression and Neuropathy Anesthetic Plan ASA status: 3 Anesthesia: Anesthesia Evaluation, General and MAC Risk of > 500 ml blood loss (7ml/kg in children): No Medications/Allergies Home Medications Medication Instructions Recorded Confirmed Last Taken Type alcohol swabs 1 pad topical TID PRN as needed to 11/09/22 01/03/24 Unknown Rx check blood sugar 30 days #100 ea lancets #100 ea 11/09/22 01/03/24 Unknown Rx miscellaneous medical supply See Rx Instructions miscellaneous 11/09/22 01/03/24 Unknown Rx .COMPLEX #1 ea blood sugar diagnostic (Blood #50 ea 03/08/23 01/03/24 Unknown Rx Glucose Test strips) blood-glucose meter (Blood Glucose #1 ea 05/21/23 01/03/24 Unknown Rx Monitoring kit) apixaban 5 mg tablet 5 mg PO BID 30 days #60 tabs 08/09/23 01/03/24 12/31/23 Rx hydroxyzine HCl 25 mg tablet 25 mg PO TID PRN anxiety 30 days 08/09/23 01/03/24 Unknown Rx #90 tabs gabapentin 100 mg capsule 100 mg PO TID PRN pain 90 days 11/14/23 01/03/24 2 Months Ago Rx #270 caps ~11/03/23 hydrochlorothiazide 25 mg tablet 25 mg PO DAILY 90 days #90 tabs 11/14/23 01/03/24 12/31/23 Rx lisinopril 40 mg tablet 40 mg PO DAILY 90 days #90 tabs 11/14/23 01/03/24 12/31/23 Rx meloxicam 15 mg tablet 15 mg PO DAILY knee pain 90 days 11/14/23 01/03/24 12/31/23 Rx #90 tabs pantoprazole 40 mg tablet,delayed 40 mg PO DAILY 90 days #90 tabs 11/14/23 01/03/24 12/31/23 Rx release paroxetine HCl 30 mg tablet (Paxil) 30 mg PO DAILY 90 days #90 tabs 11/14/23 01/03/24 12/31/23 Rx glipizide 10 mg tablet, extended 10 mg PO BID 90 days #180 tabs 12/05/23 01/03/24 12/31/23 Rx release 24 hr loratadine 10 mg tablet 10 mg PO DAILY 30 days #30 tabs 12/05/23 01/03/24 12/31/23 Rx dulaglutide 4.5 mg/0.5 mL 4.5 mg (0.5 mL) SUBCUT .WEEKLY 12/22/23 01/03/24 12/23/23 Rx subcutaneous pen injector days #2 mL fluticasone propionate 50 1 spray intranasal Q12H PRN 01/02/24 01/03/24 Unknown History mcg/actuation nasal Allergy Symptoms spray,suspension (Flonase Allergy Relief) Allergies Allergy/AdvReac Type Severity Reaction Status Date / Time No Known Allergies Allergy Verified 12/08/23 10:27 Current Medications Generic Name Dose Route Start Last Admin Trade Name Freq PRN Reason Stop Dose Admin Sodium Chloride 1,000 mls @ 30 mls/hr 01/03/24 10:15 01/03/24 11:27 Sodium Chloride 0.9% IV 01/04/24 10:14 30 mls/hr .Q24H VERONICA Administration PFSH Anesthesia Medical History Family history of colon cancer Diabetic neuropathy Type 2 diabetes mellitus Metformin and jardiance intolerance COPD (chronic obstructive pulmonary disease) DUB (dysfunctional uterine bleeding) Hypertension, benign Asthma Degenerative joint disease Anxiety PTSD (post-traumatic stress disorder) Depression Sleep apnea Diabetes Surgical History H/O knee surgery H/O section History of appendectomy H/O foot surgery Family History Mother Colon cancer Other Cancer Diabetes Hypertension Social History Smoking and tobacco/nicotine status: never used tobacco/nicotine Alcohol intake: never Substance/Drug Use: never Household members: spouse Housing: House Current gender identity: Female Female Reproductive History Spontaneous abortions: No Data Anesthesia Cardiac Studies: Echocardiogram Ultrasound 12/05/19
[2024-01-03 12:07] VITALS: BP 124/76; PULSE 87; RESP 17; TEMP 36.7; O2SAT 90
--- NOTE | 2024-01-03 12:16 | ANE.PACU2 ---
Inpatient post-anesthesia follow up: Airway intact: Yes Vital signs: Temperature 98.1 F Pulse Rate 87 Respiratory Rate 17 Blood Pressure 124/76 Pulse Oximetry 90 Oxygen Delivery Me thod Room Air Oxygen Flow Rate Fraction of Inspir ed Oxygen Hydration adequate: Yes Nausea and vomiting: No Pain level: 1 Mental status: Baseline
[2024-01-03 12:23] VITALS: BP 120/80; PULSE 83; RESP 16; O2SAT 95
== END 2024-01-03 12:58 | disposition home or self-care (01) ==
PROVIDERS: PCP Family Medicine; Visit Provider Surgery
PROC: 0DJ08ZZ Inspection of Upper Intestinal Tract, Via Natural or Artificial Opening Endoscopic (ICD-10-PCS; CPT 43235; principal; 2024-01-03 11:15)
PROC: 0DJD8ZZ Inspection of Lower Intestinal Tract, Via Natural or Artificial Opening Endoscopic (ICD-10-PCS; CPT 45378; 2024-01-03 11:15)
DX: K92.2 Gastrointestinal hemorrhage, unspecified (principal); Z80.0 Family history of malignant neoplasm of digestive organs; K21.9 Gastro-esophageal reflux disease without esophagitis; J44.9 Chronic obstructive pulmonary disease, unspecified; I10 Essential (primary) hypertension; G47.30 Sleep apnea, unspecified; E11.40 Type 2 diabetes mellitus with diabetic neuropathy, unspecified
CPT/HCPCS: 43239; 45378; 88305; J2704; J7030

== ENCOUNTER → 2024-01-18 10:33 | Outpatient (BNVA) | payer MEDICARE, MEDICAID, SELFPAY | PROVIDERS: PCP Family Medicine; Visit Provider Surgery | DX: Z09 Encounter for follow-up examination after completed treatment for conditions other than malignant neoplasm (principal); K21.9 Gastro-esophageal reflux disease without esophagitis; K64.8 Other hemorrhoids; Z80.0 Family history of malignant neoplasm of digestive organs | CPT/HCPCS: 99214 ==

== ENCOUNTER → 2024-01-30 10:23 | Outpatient (BNVA) | payer MEDICARE, MEDICAID, SELFPAY | PROVIDERS: PCP Family Medicine; Visit Provider Family Medicine | DX: E11.69 Type 2 diabetes mellitus with other specified complication (principal) | CPT/HCPCS: 80048; 83036 ==

== ENCOUNTER → 2024-04-11 14:11 | Outpatient (BNVA) | payer MEDICARE, MEDICAID, SELFPAY | PROVIDERS: PCP Family Medicine; Visit Provider Nurse Practitioner | DX: J02.9 Acute pharyngitis, unspecified (principal) | CPT/HCPCS: 87426 ==

== ENCOUNTER → 2024-04-30 09:47 | Outpatient (BNVA) | payer MEDICARE, MEDICAID, SELFPAY | PROVIDERS: PCP Family Medicine; Visit Provider Family Medicine | DX: J44.9 Chronic obstructive pulmonary disease, unspecified (principal); E11.69 Type 2 diabetes mellitus with other specified complication | CPT/HCPCS: 80048; 83036; 85025 ==

== ENCOUNTER → 2024-07-09 09:39 | Outpatient (BNVA) | payer MEDICARE, MEDICAID, SELFPAY | PROVIDERS: PCP Family Medicine; Visit Provider Family Medicine | DX: E11.69 Type 2 diabetes mellitus with other specified complication (principal); R53.83 Other fatigue; Z68.43 Body mass index [BMI] 50.0-59.9, adult | CPT/HCPCS: 80053; 83036; 84439; 84443; 84481 ==

== ENCOUNTER → 2024-07-15 10:30 | Outpatient (BNVA) | payer MEDICARE, MEDICAID, SELFPAY | PROVIDERS: PCP Family Medicine; Referring Provider Family Medicine; Visit Provider Internal Medicine | DX: E11.42 Type 2 diabetes mellitus with diabetic polyneuropathy (principal); E11.69 Type 2 diabetes mellitus with other specified complication; E66.01 Morbid (severe) obesity due to excess calories; Z68.42 Body mass index [BMI] 45.0-49.9, adult; M19.90 Unspecified osteoarthritis, unspecified site; Z79.84 Long term (current) use of oral hypoglycemic drugs | CPT/HCPCS: 99204 ==

== ENCOUNTER 2024-09-06 13:33 | Outpatient (CLI) | payer MEDICARE, MEDICAID, SELFPAY ==
--- NOTE | 2024-09-06 13:40 | MM_ITS ---
WS: [id number] BILATERAL 3D TOMOSYNTHESIS DIGITAL SCREENING MAMMOGRAPHY WITH CAD CLINICAL INFORMATION: Z12.39 - Encounter for other screening for malignant neop... HISTORY: Screening mammogram. No current complaints. COMPARISON: 2022 TECHNIQUE: Bilateral CC and MLO views. FINDINGS: Scattered fibroglandular densities bilaterally. No suspicious focal mass, asymmetry, calcifications, or architectural distortion. No evidence of malignancy. Incidental punctate and vascular calcificatio ns. MM/MM scr tomosynthesis [id number] IMPRESSION: DENSITY: There are scattered areas of fibroglandular density. BI-RADS: 2 - Benign. FOLLOW UP: 1 Year Follow-up Recommend return to annual screening mammography.
== END 2024-09-06 13:34 | disposition home or self-care (01) ==
PROVIDERS: PCP Family Medicine; Visit Provider Family Medicine
DX: Z12.31 Encounter for screening mammogram for malignant neoplasm of breast (principal); R92.323 Mammographic fibroglandular density, bilateral breasts; R92.1 Mammographic calcification found on diagnostic imaging of breast
CPT/HCPCS: 77063; 77067

== ENCOUNTER → 2024-10-17 10:12 | Outpatient (BNVA) | payer MEDICARE, MEDICAID, SELFPAY | PROVIDERS: PCP Family Medicine; Visit Provider Family Medicine | DX: I10 Essential (primary) hypertension (principal); E11.42 Type 2 diabetes mellitus with diabetic polyneuropathy; E11.69 Type 2 diabetes mellitus with other specified complication; E66.01 Morbid (severe) obesity due to excess calories; Z68.42 Body mass index [BMI] 45.0-49.9, adult; M19.90 Unspecified osteoarthritis, unspecified site | CPT/HCPCS: 80053; 80061; 83036 ==

== ENCOUNTER → 2024-10-21 09:57 | Outpatient (BNVA) | payer MEDICARE, MEDICAID, SELFPAY | PROVIDERS: PCP Family Medicine; Referring Provider Internal Medicine; Visit Provider Internal Medicine | DX: E11.42 Type 2 diabetes mellitus with diabetic polyneuropathy (principal); E11.69 Type 2 diabetes mellitus with other specified complication; E66.01 Morbid (severe) obesity due to excess calories; Z68.42 Body mass index [BMI] 45.0-49.9, adult; M19.90 Unspecified osteoarthritis, unspecified site | CPT/HCPCS: 82043; 82530; 82570 ==

== ENCOUNTER → 2024-11-13 11:15 | Outpatient (BNVA) | payer MEDICARE, MEDICAID, SELFPAY | PROVIDERS: PCP Family Medicine; Visit Provider Internal Medicine | DX: E11.42 Type 2 diabetes mellitus with diabetic polyneuropathy (principal); E66.01 Morbid (severe) obesity due to excess calories; Z68.42 Body mass index [BMI] 45.0-49.9, adult | CPT/HCPCS: 99214 ==

== ENCOUNTER → 2025-01-16 10:55 | Outpatient (BNVA) | payer MEDICARE, MEDICAID, SELFPAY | PROVIDERS: PCP Family Medicine; Visit Provider Family Medicine | DX: E11.69 Type 2 diabetes mellitus with other specified complication (principal); E11.42 Type 2 diabetes mellitus with diabetic polyneuropathy; E66.01 Morbid (severe) obesity due to excess calories; Z68.42 Body mass index [BMI] 45.0-49.9, adult; M19.90 Unspecified osteoarthritis, unspecified site | CPT/HCPCS: 80053; 80061; 82043; 83036 ==

== ENCOUNTER → 2025-04-08 14:37 | Outpatient (BNVA) | payer MEDICARE, MEDICAID, SELFPAY | PROVIDERS: PCP Family Medicine; Visit Provider Family Medicine | DX: E11.69 Type 2 diabetes mellitus with other specified complication (principal); N18.31 Chronic kidney disease, stage 3a | CPT/HCPCS: 80048; 83036 ==

== ENCOUNTER → 2025-05-09 11:12 | Outpatient (BNVA) | payer MEDICARE, MEDICAID, SELFPAY | PROVIDERS: PCP Family Medicine; Visit Provider Internal Medicine | DX: E11.42 Type 2 diabetes mellitus with diabetic polyneuropathy (principal); E66.01 Morbid (severe) obesity due to excess calories; Z68.42 Body mass index [BMI] 45.0-49.9, adult; M19.90 Unspecified osteoarthritis, unspecified site; N17.9 Acute kidney failure, unspecified | CPT/HCPCS: 99214 ==

== ENCOUNTER → 2025-05-13 09:53 | Outpatient (BNVA) | payer MEDICARE, MEDICAID, SELFPAY | PROVIDERS: PCP Family Medicine; Visit Provider Internal Medicine | DX: E11.69 Type 2 diabetes mellitus with other specified complication (principal) | CPT/HCPCS: 80048 ==

== ENCOUNTER → 2025-06-05 09:34 | Outpatient (BNVA) | payer MEDICARE, MEDICAID, SELFPAY | PROVIDERS: PCP Family Medicine; Referring Provider Family Medicine; Visit Provider Family Medicine | DX: N18.31 Chronic kidney disease, stage 3a (principal) | CPT/HCPCS: 80048 ==

== ENCOUNTER → 2025-06-23 09:36 | Outpatient (BNVA) | payer MEDICARE, MEDICAID, SELFPAY | PROVIDERS: PCP Family Medicine; Referring Provider Family Medicine; Visit Provider Family Medicine | DX: N18.31 Chronic kidney disease, stage 3a (principal) | CPT/HCPCS: 80069 ==

== ENCOUNTER → 2025-07-22 10:23 | Outpatient (BNVA) | payer MEDICARE, MEDICAID, SELFPAY | PROVIDERS: PCP Family Medicine; Visit Provider Family Medicine | DX: E11.69 Type 2 diabetes mellitus with other specified complication (principal) | CPT/HCPCS: 82043; 83036 ==